=== PATIENT | female | born 1965 | race Caucasian/White ===

== ENCOUNTER → 2018-01-28 07:17 | Outpatient (CLI) | payer OTHER, SELFPAY ==
[2018-01-28 07:53] LABS: Basophils % 0.6 % (0.1-2.0); Eosinophils # 0.1 K/mm3 (0.0-0.4); Eosinophils % 1.1 % (0.1-12.0); Hematocrit 42.9 % (37.0-47.0); Hemoglobin 14.3 g/dL (12.2-16.2); Lymphocytes # 2.2 K/mm3 (0.7-4.5); Mean Corpuscular HGB Conc 33.5 g/dL (31.8-35.4); Mean Corpuscular Hemoglobin 31.9 pg (27.0-31.2); Mean Corpuscular Volume 95.4 fl (81-99); Mean Platelet Volume 7.4 fl (7.4-10.4); Monocytes # 0.3 K/mm3 (0.1-1.0); Monocytes % 6.2 % (1.7-9.3); Neutrophils % 44.1 % (37.0-80.0); Platelet Count 286 K/mm3 (142-424); Red Blood Count 4.49 M/mm3 (4.20-5.40); White Blood Count 4.6 K/mm3 (4.8-10.8)
[2018-01-28 09:32] LABS: Alanine Aminotransferase 22 U/L (12-78); Albumin/Globulin Ratio 1.4 (1.1-1.8); Alkaline Phosphatase 77 U/L (46-116); Aspartate Amino Transferase 15 U/L (15-37); Bilirubin,Total 0.5 mg/dL (0.2-1.0); Blood Urea Nitrogen 16 mg/dL (7-18); Calcium 9.6 mg/dL (8.5-10.1); Carbon Dioxide 33 mmol/L (21.0-32.0); Chloride 104 mmol/L (98-107); Creatinine,Serum 0.51 mg/dL (0.55-1.02); Estimated Glomerular Filt Rate 127 ml/min (>60); Ferritin 153 ng/mL (8-388); GFR (African American) 154 ML/MIN (>60); Globulin 2.9 gm/dl (1.3-3.2); Glucose 72 mg/dL (74-106); Iron 121 ug/dl (28-170); Sodium 143 mmol/L (136-145); Total Protein,Serum 6.9 gm/dL (6.4-8.2)
[2018-01-29 14:49] LABS: Folate >20.0 ng/mL (>3.0); Prealbumin 22 mg/dL (10-36); Vitamin D 25 Hydroxy 65.8 ng/mL (30.0-100.0)
[2018-01-30 19:21] LABS: Methylmalonic Acid 89 nmol/L (0-378)
[2018-02-01 04:22] LABS: Vitamin B1 165.3 nmol/L (66.5-200.0)
== END ==
PROVIDERS: Visit Provider Physician Assistant
DX: R11.0 Nausea (principal); R53.83 Other fatigue; E55.9 Vitamin D deficiency, unspecified; Z13.0 Encounter for screening for diseases of the blood and blood-forming organs and certain disorders involving the immune mechanism; Z13.21 Encounter for screening for nutritional disorder
CPT/HCPCS: 36415; 80053; 82131; 82652; 82728; 82746; 83540; 84134; 84425; 85025

== ENCOUNTER → 2018-03-04 08:28 | Outpatient (CLI) | payer OTHER, SELFPAY ==
--- NOTE | 2018-03-04 08:31 | MM_ITS ---
MM Dig screening mamm BI w/CAD CAD Screening ORDERING PHYSICIAN : Tom Jama MD PATIENT AGE: 52 years GENDER: Female HISTORY. No hormones. No new complaints. Routine screening Family history mother and maternal grandmother with breast cancer COMPARISON: Previous mammograms: January 2017 & December 2015 and 2014. INDICATION: Routine screening TECHNIQUE: Standard CC and MLO images were obtained. R2 CAD reviewed. FINDINGS: Minimal residual fibroglandular elements bilaterally with moderate fatty replacement bilaterally. No dominant mass. No suspicious calcifications. No architectural distortion.. No significant change previous studies CAD computer review highlights no areas of concern IMPRESSION...... : Negative stable bilateral mammogram Follow-up in one year recommended. BI-RADS Category: 1 Negative RECOMMENDED FOLLOW-UP: 1YR - 1 YEAR FOLLOW-UP (A letter has been sent to the patient regarding results of the study.) Knee
== END ==
PROVIDERS: Family Provider Family Medicine; PCP Family Medicine; Visit Provider Nurse Practitioner Obstetrics & Gynecology
DX: Z12.31 Encounter for screening mammogram for malignant neoplasm of breast (principal)
CPT/HCPCS: 77067

== ENCOUNTER → 2018-07-17 08:02 | Outpatient (CLI) | payer OTHER, SELFPAY ==
[2018-07-17 08:38] LABS: Basophils % 0.7 % (0.1-2.0); Eosinophils # 0.2 K/mm3 (0.0-0.4); Eosinophils % 2.8 % (0.1-12.0); Hematocrit 40.8 % (37.0-47.0); Hemoglobin 13.3 g/dL (12.2-16.2); Lymphocytes # 2.4 K/mm3 (0.7-4.5); Lymphocytes % 45.2 K/mm3 (10-50); Mean Corpuscular HGB Conc 32.6 g/dL (31.8-35.4); Mean Corpuscular Hemoglobin 30.7 pg (27.0-31.2); Mean Corpuscular Volume 94.4 fl (81-99); Monocytes # 0.3 K/mm3 (0.1-1.0); Monocytes % 5.8 % (1.7-9.3); Neutrophils # 2.4 K/mm3 (1.8-7.8); Neutrophils % 45.5 % (37.0-80.0); Platelet Count 325 K/mm3 (142-424); Red Blood Count 4.33 M/mm3 (4.20-5.40); Red Cell Distribution Width 12.6 % (11.5-17.5); White Blood Count 5.3 K/mm3 (4.8-10.8)
[2018-07-17 09:55] LABS: Alanine Aminotransferase 26 U/L (12-78); Albumin Level 4.1 gm/dL (3.4-5.0); Albumin/Globulin Ratio 1.2 (1.1-1.8); Alkaline Phosphatase 73 U/L (46-116); Aspartate Amino Transferase 17 U/L (15-37); Bilirubin,Total 0.3 mg/dL (0.2-1.0); Blood Urea Nitrogen 10 mg/dL (7-18); Calcium 9.4 mg/dL (8.5-10.1); Carbon Dioxide 31 mmol/L (21.0-32.0); Chloride 103 mmol/L (98-107); Chol/HDL Ratio 2.9 (1-3.5); Cholesterol 279 mg/dL (140-200); Estimated Glomerular Filt Rate 168 ml/min (>60); GFR (African American) 203 ML/MIN (>60); Globulin 3.3 gm/dl (1.3-3.2); Glucose 83 mg/dL (74-106); HDL Cholesterol 95 mg/dL (29-89); LDL Cholesterol 171 mg/dL (0-130); Sodium 143 mmol/L (136-145); Total Protein,Serum 7.4 gm/dL (6.4-8.2); Triglycerides 65 mg/dL (30-200); VLDL Cholesterol 13 mg/dL (0-40)
== END ==
PROVIDERS: PCP Family Medicine; Visit Provider Nurse Practitioner Obstetrics & Gynecology
DX: Z01.419 Encounter for gynecological examination (general) (routine) without abnormal findings (principal)
CPT/HCPCS: 36415; 80053; 80061; 85025

== ENCOUNTER → 2019-03-11 08:10 | Outpatient (CLI) | payer OTHER, SELFPAY ==
--- NOTE | 2019-03-11 08:11 | MM_ITS ---
MM Dig screening mamm BI w/CAD ORDERING PHYSICIAN : Tom Jama MD PATIENT AGE: 53 years GENDER: Female COMPARISON: Prior bilateral mammogram study: February 2018, January 2017, December 20152014 INDICATION: .: Routine Screening Mammogram Family history mother and maternal grandmother with breast cancer TECHNIQUE: Standard CC and MLO images were obtained. R2 CAD reviewed. FINDINGS: Low-density breast. Minimal residual fibroglandular elements generalized fatty replacement. . No dominant nor new suspicious mass in either breast No new areas of concern. No suspicious calcifications. . IMPRESSION: Stable bilateral mammogram. No areas of concern . Bilateral follow-up in one year BI-RADS Category: 1 Negative RECOMMENDED FOLLOW-UP: 1YR 1 YEAR FOLLOW-UP (A letter has been sent to the patient regarding results of the study.)
== END ==
PROVIDERS: PCP Family Medicine; Visit Provider Nurse Practitioner Obstetrics & Gynecology
DX: Z12.31 Encounter for screening mammogram for malignant neoplasm of breast (principal)
CPT/HCPCS: 77067

== ENCOUNTER → 2019-03-19 07:05 | Outpatient (CLI) | payer OTHER, SELFPAY ==
[2019-03-19 10:03] LABS: Cholesterol 236 mg/dL (140-200); T4 (Thyroxine) 8.8 ug/dl (4.7-13.3); Thyroid Stimulating Hormone 3.34 uIU/ml (0.358-3.740); Triiodothryronine (T3) Uptake 34 % (31-39)
[2019-03-21 21:39] LABS: Estradiol <5.0 pg/mL (.); FSH 46.8 mIU/mL (.)
== END ==
PROVIDERS: Visit Provider Nurse Practitioner Obstetrics & Gynecology
DX: E78.00 Pure hypercholesterolemia, unspecified (principal); N95.1 Menopausal and female climacteric states; R53.82 Chronic fatigue, unspecified
CPT/HCPCS: 36415; 82465; 82670; 83001; 83002; 84436; 84443; 84479

== ENCOUNTER → 2019-04-05 15:39 | Outpatient (POV) | payer OTHER, SELFPAY | PROVIDERS: Visit Provider Nurse Practitioner Family | DX: Z00.00 Encounter for general adult medical examination without abnormal findings (principal) ==

== ENCOUNTER → 2020-04-21 07:53 | Outpatient (CLI) | payer OTHER, SELFPAY ==
--- NOTE | 2020-04-21 07:54 | MM_ITS ---
PROCEDURE: MM DIG SCREENING MAMM BI W/CAD Digital Breast Tomosynthesis Included CLINICAL INDICATION: screening xmg There is a history of breast cancer patient's mother and maternal grandmother. COMPARISON: [facility] DIG MAMM-SCREEN DANNY W/CAD from 02/11/2017 [facility] MM Dig screening mamm BI w/CAD from 03/04/2018 DIG MAMM-SCREEN DANNY from 03/11/2019 TECHNIQUE: Standard CC and MLO images and 3D Tomosynthesis was obtained. R2 CAD reviewed. FINDINGS: Scattered diffuse fibroglandular densities are seen throughout both breasts and the findings are bilateral and symmetrical. There is no suspicious lesion in either breast and no suspicious microcalcifications. IMPRESSION: Moderate diffuse breast density with no suspicious lesions seen BI-RAD Category: 1 Negative FOLLOW-UP: 1YR 1 Year Follow-up (A letter has been sent to the patient regarding results of the study.) Dictated by: Dr. Melchor Gauthier MD 04/24/2020 08:[address] Melchor Gauthier MD in [place] 04/24/2020 08:25
== END ==
PROVIDERS: PCP Family Medicine; Visit Provider Nurse Practitioner Obstetrics & Gynecology
DX: Z12.31 Encounter for screening mammogram for malignant neoplasm of breast (principal)
CPT/HCPCS: 77063; 77067

== ENCOUNTER → 2020-06-20 11:28 | Outpatient (CLI) | payer OTHER, SELFPAY ==
[2020-06-20 13:09] LABS: Basophils % 0.6 % (0.1-2.0); Eosinophils # 0.1 K/mm3 (0.0-0.4); Eosinophils % 1.2 % (0.1-12.0); Hematocrit 40.7 % (37.0-47.0); Hemoglobin 13.8 g/dL (12.2-16.2); Lymphocytes # 2.2 K/mm3 (0.7-4.5); Lymphocytes % 43.2 % (10-50); Mean Corpuscular HGB Conc 33.8 g/dL (31.8-35.4); Mean Corpuscular Hemoglobin 32.5 pg (27.0-31.2); Mean Platelet Volume 7.8 fl (7.4-10.4); Monocytes # 0.3 K/mm3 (0.1-1.0); Neutrophils # 2.5 K/mm3 (1.8-7.8); Platelet Count 290 K/mm3 (142-424); Red Blood Count 4.24 M/mm3 (4.20-5.40); Red Cell Distribution Width 12.5 % (11.5-17.5); White Blood Count 5.2 K/mm3 (4.8-10.8)
[2020-06-21 16:12] LABS: Covid-19 Nasal PCR Sendout Lex Not Detected
== END ==
PROVIDERS: PCP Family Medicine; Visit Provider Family Medicine
DX: Z03.818 Encounter for observation for suspected exposure to other biological agents ruled out (principal)
CPT/HCPCS: 36415; 85025; U0004

== ENCOUNTER → 2020-07-13 16:25 | Outpatient (CLI) | payer OTHER, SELFPAY ==
[2020-07-13 16:44] LABS: Adenovirus,PCR Not Detected (NotDetected); Bordetella Pertussis Not Detected (NotDetected); Chlamydophila Pneumoniae, PCR Not Detected (NotDetected); Coronavirus 19, PCR Not Detected (NotDetected); Coronavirus 229E Not Detected (NotDetected); Coronavirus NL63 Not Detected (NotDetected); Coronavirus OC43 Not Detected (NotDetected); Coronovirus HKU1,PCR Not Detected (NotDetected); Human Metapneumovirus Not Detected (NotDetected); Influenza A, PCR Not Detected (NotDetected); Influenza AH1, 2009 Not Detected (NotDetected); Influenza AH1, PCR Not Detected (NotDetected); Influenza AH3,PCR Not Detected (NotDetected); Influenza B, PCR Not Detected (NotDetected); Mycoplasma Pneumoniae, PCR Not Detected (NotDetected); Parainfluenza 1, PCR Not Detected (NotDetected); Parainfluenza 2, PCR Not Detected (NotDetected); Parainfluenza 3, PCR Not Detected (NotDetected); Parainfluenza 4, PCR Not Detected (NotDetected); Respiratory Syncytial Virus Not Detected (NotDetected); Rhinovirus/Enterovirus Not Detected (NotDetected)
== END ==
PROVIDERS: PCP Family Medicine; Visit Provider Internal Medicine Adolescent Medicine
DX: Z03.818 Encounter for observation for suspected exposure to other biological agents ruled out (principal)
CPT/HCPCS: 87581; 87633; 87798; U0003

== ENCOUNTER 2020-11-01 16:31 | Emergency (ER) | payer OTHER, SELFPAY ==
[2020-11-01 16:58] VITALS: BP 144/80; PULSE 69; RESP 19; TEMP 36.9; O2SAT 100; BMI 33.7
--- NOTE | 2020-11-01 17:17 | HMH.EDUTC ---
[facility] [place] Disposition Clinical Impression: Strep throat Disposition: Home, Self-Care Condition on Discharge: Good Instructions: Strep Throat, DI for Strep Throat Additional Instructions: Drink plenty of fluids. Take tylenol for pain or fever. Return if you begin to have difficulty breathing. Follow up with your regular doctor. GO TO THE ER FOR ANY WORSENING SYMPTOMS Throw your tooth brush away and get a new one. Prescriptions: Azithromycin [Z-Jose Alejandro 250mg Tab*] 250 mg PO UD DOSE PK #6 tab Transmission Status: Received by [facility] Referrals: Daniel Polk MD [Primary Care Provider] - Forms: Work/School Release Time of Disposition: 17:19 Medical Decision Making - Medical Records Medical records reviewed: No: I reviewed the patient's medical records. - Victor Hugo Inquiry Pt receiving controlled substance: No Vital Signs: 11/01/20 16:58 11/01/20 17:20 Temperature 98.4 F 98.0 F Temperature Source Oral Oral Pulse Rate 69 Pulse Rate [Right] 69 Respiratory Rate 19 18 Blood Pressure 131/86 Blood Pressure [Right Radial Artery] 144/80 H Blood Pressure Mean [Right Radial Artery] 101 Blood Pressure Source [Right Radial Artery] Automatic Cuff Blood Pressure Position Sitting Blood Pressure Position [Right Radial Artery] Sitting 02 Sat by Pulse Oximetry 100 Oxygen Delivery Method Room Air - Lab Data Lab results reviewed: Yes: I reviewed the patient's lab results. Lab Results 11/01/20 16:55: Strep Scn Rapid Clinic Positive A [facility] [place] HPI - General Stated complaint: Covid test Time Seen by Provider: 11/01/20 17:17 Mode of Arrival: Ambulatory Source of Information: Patient Limitations: No Limitations Description of Symptoms (Recalled from Triage Doc. by RN): pt states she has a sore throat, shes fatigued, has a sore chest. and is inquiring about receiving a covid test. HEENT Symptoms (Recalled from RN notes): Yes (sore throat) Resp Symptoms (Recalled from RN notes): No Skin Symptoms (Recalled from RN notes): No MS Symptoms (Recalled from RN notes): No Functional Status (Recalled from RN notes): generalized weakness - History of Present Illness Provider Complaint: She states that since yesterday she has felt very fatigued. She has also chilled and had a sore throat. 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 She denies any cough, shortness of breath, fever, and body aches. - Related Data Home Medications Medication Instructions Recorded Confirmed omeprazole 40 mg capsule,delayed 40 mg PO DAILY #30 cap 05/06/19 08/15/20 release Previous Rx's Medication Instructions Recorded estradiol 1 g VAGINAL WEEKLY #42.5 g 10/25/20 Azithromycin [Z-Jose Alejandro 250mg Tab*] 250 mg PO UD DOSE PK #6 tab 11/01/20 Allergies Allergy/AdvReac Type Severity Reaction Status Date / Time cephalexin Allergy Severe SWELLS AND Verified 11/01/20 17:04 DIFFICULTY BREATHING Penicillins Allergy Severe SWELLS AND Verified 11/01/20 17:04 DIFFICULTY BREATHING bupropion Allergy Intermediate I-HIVES Verified 11/01/20 17:04 codeine Allergy Unknown HEART RACES Verified 11/01/20 17:04 - Worker's Comp Is this a Worker's Comp case?: No [facility] History - Hepatitis A Screen Drug use history?: No High risk sexual behaviors?: No History of sexually transmitted infection?: No Currently employed?: No Childcare worker?: No Do you have indoor plumbing?: Yes Do you have electricity?: Yes Attestation statement:: This patient has been screened for Hepatitis A risk factors. I have reviewed the patient's past medical history: Yes Medical History: Denies:: Diabetes Mellitus Type 1, Diabetes Mellitus Type 2, Internal Pacemaker, Lung Disease, Seizures Other Medical History: Reports: Thyroid Disease Laterality Cases: Bilateral: Other Other Surgeries: Yes: Bariatric Surgery, , Dilation and Curettage, Tubal Ligation. No: Pacemaker Amputation: No Fractu
[2020-11-01 17:20] VITALS: BP 131/86; PULSE 69; RESP 18; TEMP 36.7
[2020-11-01 17:22] LABS: UTC Strep Screen (Rapid) Positive (Negative)
== END 2020-11-01 17:20 | disposition home or self-care (01) ==
PROVIDERS: Emergency Provider Nurse Practitioner Family; PCP Family Medicine
DX: J02.0 Streptococcal pharyngitis (principal)
CPT/HCPCS: 87880; 99202; G0463; U0003

== ENCOUNTER → 2021-05-02 07:54 | Outpatient (CLI) | payer OTHER, SELFPAY ==
--- NOTE | 2021-05-02 07:54 | MM_ITS ---
PROCEDURE INFORMATION: Exam: MG Screening 3D Mammography Exam date and time: 05/02/2021 7:54 AM Age: 55 years old Clinical indication: Encounter for screening mammogram for malignant neoplasm of breast TECHNIQUE: Imaging protocol: Screening tomosynthesis and 2D mammography including computer-aided detection (CAD) when performed. COMPARISON: 1. MG MM DIG SCREENING MAMM BI W/CAD 04/21/2020 8:06 AM 2. MG DIG MAMM-SCREEN DANNY 03/11/2019 8:30 AM FINDINGS: MAMMOGRAPHY: Breast composition: The breast tissue is composed of scattered areas of fibroglandular density. Mass: None. Architectural distortion: None. Calcifications: No suspicious calcifications. Asymmetric density: None. Skin thickening: None. Axillary adenopathy: None. IMPRESSION: No mammographic evidence of malignancy. Annual screening is recommended unless otherwise clinically indicated. ASSESSMENT: BI-RADS Category 1: Negative
== END ==
PROVIDERS: PCP Family Medicine; Visit Provider Nurse Practitioner Obstetrics & Gynecology
DX: Z12.31 Encounter for screening mammogram for malignant neoplasm of breast (principal)
CPT/HCPCS: 77063; 77067

== ENCOUNTER → 2021-07-05 19:43 | Outpatient (CLI) | payer OTHER, SELFPAY | PROVIDERS: Visit Provider Nurse Practitioner Family | DX: Z20.822 Contact with and (suspected) exposure to COVID-19 (principal) | CPT/HCPCS: C9803; U0003; U0005 ==

== ENCOUNTER → 2021-11-13 15:55 | Outpatient (CLI) | payer BC, SELFPAY | PROVIDERS: PCP Family Medicine; Visit Provider Nurse Practitioner | DX: Z20.822 Contact with and (suspected) exposure to COVID-19 (principal) | CPT/HCPCS: C9803; U0003; U0005 ==

== ENCOUNTER 2022-02-17 11:18 | Emergency (ER) | payer OTHER, SELFPAY ==
[2022-02-17 11:36] VITALS: BP 137/71; PULSE 82; RESP 19; TEMP 36.8; O2SAT 95; BMI 34.9
--- NOTE | 2022-02-17 11:39 | HMH.EDUTC ---
[facility] [place] Disposition Clinical Impression: Sinusitis Qualifiers: Sinusitis location: unspecified location Chronicity: acute Recurrence: non-recurrent Qualified Code(s): J01.90 - Acute sinusitis, unspecified Acute bronchitis Qualifiers: Bronchitis organism: unspecified organism Qualified Code(s): J20.9 - Acute bronchitis, unspecified Disposition: Home, Self-Care Condition on Discharge: Good Instructions: DI for Sinusitis, DI for Acute Bronchitis Additional Instructions: Drink plenty of fluids. Take tylenol or ibuprofen for pain or fever. Take the medications as directed. Follow up with your regular doctor. GO TO THE ER FOR ANY WORSENING SYMPTOMS Don't start the oral steroids until tomorrow, since you had the shot here today. Prescriptions: Benzonatate [Benzonatate 100mg cap] 100 mg PO TIDP PRN #30 cap PRN Reason: Cough Transmission Status: Received by [facility] Doxycycline Monohydrate [Doxycycline [place] 100mg Tab] 100 mg PO Q12 10 Days #20 tab Transmission Status: Received by [facility] methylPREDNISolone [Medrol] 4 mg PO DIRECTED 6 Days #21 packet Transmission Status: Received by [facility] Referrals: Daniel Polk MD [Primary Care Provider] - Forms: Work/School Release Time of Disposition: 12:34 Medical Decision Making - Medical Records Medical records reviewed: No: I reviewed the patient's medical records. - Victor Hugo Inquiry Pt receiving controlled substance: No Vital Signs: 02/17/22 11:36 02/17/22 12:38 Temperature 98.3 F 98.3 F Temperature Source Oral Pulse Rate 82 Pulse Rate [Left Radial] 82 Respiratory Rate 19 19 Blood Pressure 137/71 Blood Pressure [Right Arm] 137/71 Blood Pressure Mean [Right Arm] 93 02 Sat by Pulse Oximetry 95 - Lab Data Lab results reviewed: Yes: I reviewed the patient's lab results. Orders (Tests/Meds): ED MEDICATIONS Discontinued Medications Generic Name Dose Route Start Last Admin Trade Name Freq PRN Reason Stop Dose Admin Dexamethasone Sodium Phosphate 8 mg 02/17/22 12:13 02/17/22 12:27 Dexamethasone 4mg/Ml 1ml Vial IM 02/17/22 12:14 8 mg ON[address] [facility] [place] HPI - General Stated complaint: cough, chest congestion Time Seen by Provider: 02/17/22 11:39 - History of Present Illness Provider Complaint: She states that for the past 3 weeks she has had sinus congestion, chest congestion, cough, and she has felt bad. She denies any fever. She usually gets a sinus infection every spring that feels like this, but this one has went on too long. - Related Data Home Medications Medication Instructions Recorded Confirmed omeprazole 40 mg capsule,delayed 40 mg PO DAILY #30 cap 05/06/19 11/29/21 release Previous Rx's Medication Instructions Recorded estradiol 1 g VAGINAL WEEKLY #42.5 g 10/25/20 Benzonatate [Benzonatate 100mg 100 mg PO TIDP PRN #30 cap 02/17/22 cap] Doxycycline Monohydrate 100 mg PO Q12 10 Days #20 tab 02/17/22 [Doxycycline [place] 100mg Tab] methylPREDNISolone [Medrol] 4 mg PO DIRECTED 6 Days #21 02/17/22 packet Allergies Allergy/AdvReac Type Severity Reaction Status Date / Time cephalexin Allergy Severe SWELLS AND Verified 08/14/21 17:39 DIFFICULTY BREATHING Penicillins Allergy Severe SWELLS AND Verified 08/14/21 17:39 DIFFICULTY BREATHING bupropion Allergy Intermediate I-HIVES Verified 08/14/21 17:39 codeine Allergy Unknown HEART RACES Verified 08/14/21 17:39 [facility] History - Hepatitis A Screen Attestation statement:: This patient has been screened for Hepatitis A risk factors. I have reviewed the patient's past medical history: Yes Medical History: Denies:: Diabetes Mellitus Type 1, Diabetes Mellitus Type 2, Internal Pacemaker, Lung Disease, Seizures Other Medical History: Reports: Thyroid Disease Laterality Cases: Bilateral: Other Other Surgeries: Yes: Bariatric Surg
[2022-02-17 12:38] VITALS: BP 137/71; PULSE 82; RESP 19; TEMP 36.8
== END 2022-02-17 12:39 | disposition home or self-care (01) ==
PROVIDERS: Emergency Provider Nurse Practitioner Family; PCP Family Medicine
DX: J01.90 Acute sinusitis, unspecified (principal); J20.9 Acute bronchitis, unspecified; Z88.0 Allergy status to penicillin; Z88.1 Allergy status to other antibiotic agents; Z88.6 Allergy status to analgesic agent; Z88.8 Allergy status to other drugs, medicaments and biological substances
CPT/HCPCS: 96372; 99212; G0463

== ENCOUNTER 2022-02-19 07:37 | Emergency (ER) | payer OTHER, SELFPAY ==
[2022-02-19 07:38] VITALS: BP 167/104; PULSE 76; RESP 18; TEMP 36.9; O2SAT 95; BMI 34.3
[2022-02-19 07:51] VITALS: BMI 34.3
--- NOTE | 2022-02-19 07:52 | XR_ITS ---
FINAL REPORT CLINICAL HISTORY: cough, SOA COMPARISON: June 18, 2016 FINDINGS: A portable view of the chest was obtained. Comparison is made to a prior exam dated June 18, 2016. Cardiac and mediastinal silhouettes are within normal limits. The lungs are clear. There is no pleural effusion or pneumothorax. IMPRESSION: No acute process on this portable exam. Reviewed, Interpreted and Dictated by Sandra Mccoy MD Transcribed by Kristal Damon Authenticated by Sandra Mccoy MD on 02/19/2022 08:41:[address] [facility]
--- NOTE | 2022-02-19 07:58 | PC.NURSE ---
rad notified of xray order
--- NOTE | 2022-02-19 07:58 | HMH.EDGENADL ---
ED Disposition Clinical Impression: COVID-19, Elevated blood pressure reading Disposition: Home, Self-Care Condition on Discharge: Good Instructions: DI for COVID-19 (Suspected or Confirmed ), Preventing the Spread of Coronavirus Discharge Instructions, High Blood Pressure Linked to Inflammation, Essential Hypertension Additional Instructions: self isolate at least 5 days from onset, 10 days if not better follow up PCP 7-10 days, as needed, return for worse Prescriptions: Albuterol Sulfate [Albuterol Sulfate Hfa] 8.5 gm IH Q4-6H PRN #1 each PRN Reason: Wheezing Transmission Status: Received by [id number] Referrals: Daniel Polk MD [Primary Care Provider] - - Critical Care Critical Care Time: No Attestation: On 02/19/22, the high probability of a clinically significant, sudden or life threatening deterioration of the following system(s) required my full and direct attention, intervention and personal management. The time I documented below is in addition to time spent performing reported procedures but includes the following listed in this critical care notation. Medical Decision Making - Medical Records Medical records reviewed: Yes: I reviewed the patient's medical records. - Victor Hugo Inquiry Pt receiving controlled substance: No Vital Signs: 02/19/22 07:38 Temperature 98.5 F Temperature Source Oral Pulse Rate [Right Radial] 76 Respiratory Rate 18 Blood Pressure [Right Arm] 167/104 H Blood Pressure Mean [Right Arm] 125 Blood Pressure Source [Right Arm] Automatic Cuff Blood Pressure Position [Right Arm] Sitting 02 Sat by Pulse Oximetry 95 Oxygen Delivery Method Room Air - Lab Data Lab Results 02/19/22 07:50: SARS-CoV-2 (PCR) Detected A, Influenza A Untype (PCR) Not detected, Influenza Type B (PCR) Not detected Orders (Tests/Meds): ORDERS Category Date Time Status XR chest portable Stat Exams 02/19/22 07:52 Taken - ECG Data Tracing #1 I reviewed this ECG and interpreted as documented below: ekg by me nsr, poss lae, no st elev General Adult HPI - General Stated complaint: SOA, congestion, cough, vomiting blood Time Seen by Provider: 02/19/22 07:58 - History of Present Illness HPI narrative: few days, prod cough, reflux, vomit with blood tinged, fever, pos covid test at home Onset (ago): day(s) Radiation: non-radiation Severity: moderate Quality: constant Consistency: constant Associated symptoms: cough, fever/chills, nausea/vomiting, shortness of breath - Related Data Home Medications Medication Instructions Recorded Confirmed omeprazole 40 mg capsule,delayed 40 mg PO DAILY #30 cap 05/06/19 11/29/21 release Previous Rx's Medication Instructions Recorded estradiol 1 g VAGINAL WEEKLY #42.5 g 10/25/20 Benzonatate [Benzonatate 100mg 100 mg PO TIDP PRN #30 cap 02/17/22 cap] Doxycycline Monohydrate 100 mg PO Q12 10 Days #20 tab 02/17/22 [Doxycycline [place] 100mg Tab] methylPREDNISolone [Medrol] 4 mg PO DIRECTED 6 Days #21 02/17/22 packet Albuterol Sulfate [Albuterol 8.5 gm IH Q4-6H PRN #1 each 02/19/22 Sulfate Hfa] Allergies Allergy/AdvReac Type Severity Reaction Status Date / Time cephalexin Allergy Severe SWELLS AND Verified 08/14/21 17:39 DIFFICULTY BREATHING Penicillins Allergy Severe SWELLS AND Verified 08/14/21 17:39 DIFFICULTY BREATHING bupropion Allergy Intermediate I-HIVES Verified 08/14/21 17:39 codeine Allergy Unknown HEART RACES Verified 08/14/21 17:39 [facility] History - Hepatitis A Screen Attestation statement:: This patient has been screened for Hepatitis A risk factors. Medical History: Denies:: Diabetes Mellitus Type 1, Diabetes Mellitus Type 2, Internal Pacemaker, Lung Disease, Seizures Other Medical History: Reports: Thyroid Disease Laterality Cases: Bilateral: Other Other Surgeries: Yes: Bariatric Surgery, , Dilation and Curettage, Tubal Ligation. No:
--- NOTE | 2022-02-19 07:59 | ECG_ITS ---
APPROVED REPORT Exam: Resting ECG HR:66 bpm ECG Measurements Heart Rate 66 AXES MS 132 P 63 QRSd 96 QRS 60 QT 358 T 75 QTc 372 Conclusion SINUS RHYTHM POSSIBLE LEFT ATRIAL ENLARGEMENT [-0.1mV P-WAVE IN V1/V2] NONSPECIFIC ST & T-WAVE ABNORMALITY BORDERLINE ECG UNCONFIRMED REPORT Electronically signed by : Carlos Colunga MD 02/19/2022 21:19:59
[2022-02-19 08:03] LABS: Influenza A, PCR Not Detected (NotDetected); Influenza B, PCR Not Detected (NotDetected)
--- NOTE | 2022-02-19 08:03 | PC.NURSE ---
MINNIE HUERTAS at
--- NOTE | 2022-02-19 08:12 | PC.NURSE ---
rad at BS
[2022-02-19 08:46] LABS: Coronavirus 19, PCR Detected (NotDetected)
[2022-02-19 09:01] VITALS: BP 162/99; PULSE 62; RESP 18; TEMP 36.9; O2SAT 97
== END 2022-02-19 09:01 | disposition home or self-care (01) ==
PROVIDERS: Emergency Medicine; Emergency Provider Emergency Medicine; PCP Family Medicine
DX: U07.1 COVID-19 (principal); R03.0 Elevated blood-pressure reading, without diagnosis of hypertension; R06.02 Shortness of breath; R05.9 Cough, unspecified; R09.89 Other specified symptoms and signs involving the circulatory and respiratory systems; K92.0 Hematemesis; Z88.0 Allergy status to penicillin; Z88.1 Allergy status to other antibiotic agents; Z88.6 Allergy status to analgesic agent; Z88.8 Allergy status to other drugs, medicaments and biological substances
CPT/HCPCS: 71045; 93005; 99283; C9803; U0003; U0005

== ENCOUNTER 2022-05-06 13:53 | Emergency (ER) | payer BC, SELFPAY ==
[2022-05-06 14:26] VITALS: BP 142/88; PULSE 78; RESP 18; TEMP 36.8; O2SAT 98; BMI 34.3
--- NOTE | 2022-05-06 14:26 | HMH.EDUTC ---
[facility] [place] Clinical Impression: Bronchitis Sinusitis Qualifiers: Sinusitis location: unspecified location Chronicity: acute Recurrence: non-recurrent Qualified Code(s): J01.90 - Acute sinusitis, unspecified Disposition: Home, Self-Care Condition on Discharge: Good Instructions: DI for Sinusitis Additional Instructions: Drink plenty of fluids. Take tylenol or ibuprofen for pain or fever. Take the medications as directed. Follow up with your regular doctor. GO TO THE ER FOR ANY WORSENING SYMPTOMS Quarantine until you know the results of your covid-19 test. Notify your school or workplace of your results and follow their instructions regarding return to work/school. Prescriptions: Benzonatate [Benzonatate 100mg cap] 100 mg PO TIDP PRN #30 cap PRN Reason: Cough Transmission Status: Received by [facility] Doxycycline Monohydrate [Doxycycline [place] 100mg Tab] 100 mg PO Q12 10 Days #20 tab Transmission Status: Received by [facility] methylPREDNISolone [Medrol] 4 mg PO DIRECTED 6 Days #21 packet Transmission Status: Received by [facility] Referrals: Daniel Polk MD [Primary Care Provider] - Forms: Work/School Release Time of Disposition: 15:18 Medical Decision Making - Medical Records Medical records reviewed: No: I reviewed the patient's medical records. - Victor Hugo Inquiry Pt receiving controlled substance: No Vital Signs: 05/06/22 14:26 05/06/22 15:36 Temperature 98.2 F 98.2 F Temperature Source Oral Pulse Rate 78 Pulse Rate [Right Radial] 78 Respiratory Rate 18 18 Blood Pressure 142/88 H Blood Pressure [Right Arm] 142/88 H Blood Pressure Mean [Right Arm] 106 Blood Pressure Source [Right Arm] Automatic Cuff Blood Pressure Position [Right Arm] Sitting 02 Sat by Pulse Oximetry 98 Oxygen Delivery Method Room Air [facility] [place] HPI - General Stated complaint: cough, congestion, sinus pressure Time Seen by Provider: 05/06/22 14:26 - History of Present Illness Provider Complaint: She states that for the past 2 days she has had sinus congestion, sore throat and a cough. - Related Data Home Medications Medication Instructions Recorded Confirmed omeprazole 40 mg capsule,delayed 40 mg PO DAILY #30 cap 05/06/19 05/06/22 release Previous Rx's Medication Instructions Recorded Benzonatate [Benzonatate 100mg 100 mg PO TIDP PRN #30 cap 05/06/22 cap] Doxycycline Monohydrate 100 mg PO Q12 10 Days #20 tab 05/06/22 [Doxycycline [place] 100mg Tab] methylPREDNISolone [Medrol] 4 mg PO DIRECTED 6 Days #21 05/06/22 packet Allergies Allergy/AdvReac Type Severity Reaction Status Date / Time cephalexin Allergy Severe SWELLS AND Verified 08/14/21 17:39 DIFFICULTY BREATHING Penicillins Allergy Severe SWELLS AND Verified 08/14/21 17:39 DIFFICULTY BREATHING bupropion Allergy Intermediate I-HIVES Verified 08/14/21 17:39 codeine Allergy Unknown HEART RACES Verified 08/14/21 17:39 [facility] History - Hepatitis A Screen Attestation statement:: This patient has been screened for Hepatitis A risk factors. I have reviewed the patient's past medical history: Yes Medical History: Denies:: Diabetes Mellitus Type 1, Diabetes Mellitus Type 2, Internal Pacemaker, Lung Disease, Seizures Other Medical History: Reports: Thyroid Disease Laterality Cases: Bilateral: Other Other Surgeries: Yes: Bariatric Surgery, , Dilation and Curettage, Tubal Ligation. No: Pacemaker Amputation: No Fractures: No Comment: lasik 2001, Ablation 2003 - Social History Smoking Status: Never smoker Alcohol Intake: never Substance Use Type: denies use Occupational Status: retired Housing: house Household Members: family Family Hx:: No significant family history [employer] history: Tubal Ligation ROS Obtained: Yes All systems reviewed & no additional complaints - Constitutional Constitutional: Reports as p
[2022-05-06 15:36] VITALS: BP 142/88; PULSE 78; RESP 18; TEMP 36.8
== END 2022-05-06 15:37 | disposition home or self-care (01) ==
PROVIDERS: Emergency Provider Nurse Practitioner Family; PCP Family Medicine
DX: J01.90 Acute sinusitis, unspecified (principal); J02.9 Acute pharyngitis, unspecified; E07.9 Disorder of thyroid, unspecified; Z88.0 Allergy status to penicillin; Z88.5 Allergy status to narcotic agent; Z88.8 Allergy status to other drugs, medicaments and biological substances
CPT/HCPCS: 99213; G0463

== ENCOUNTER → 2022-05-16 08:18 | Outpatient (CLI) | payer BC, SELFPAY ==
--- NOTE | 2022-05-16 08:19 | MM_ITS ---
PROCEDURE INFORMATION: Exam: MG Bilateral Screening 3D Mammography Exam date and time: 05/16/2022 8:37 AM Age: 57 years old Clinical indication: Screening mammogram TECHNIQUE: Imaging protocol: Bilateral Screening tomosynthesis and 2D mammography including computer-aided detection (CAD) when performed. COMPARISON: 1. MG MM DIG SCREENING MAMM BI W/CAD 05/02/2021 8:01 AM 2. MG MM DIG SCREENING MAMM BI W/CAD 04/21/2020 8:06 AM 3. MG DIG MAMM-SCREEN DANNY 03/11/2019 8:30 AM 4. MG [facility] MM Dig screening mamm BI w/CAD 03/04/2018 8:42 AM FINDINGS: MAMMOGRAPHY: Breast composition: There are scattered areas of fibroglandular density. Mass: None. Architectural distortion: No new or suspicious architectural distortion. Calcifications: No new or suspicious calcifications are present Asymmetric density: No new or suspicious asymmetric density is present Skin thickening: None. Axillary adenopathy: None. IMPRESSION: No mammographic evidence of malignancy. Recommend annual screening mammography unless otherwise clinically indicated. ASSESSMENT: BI-RADS category 1: Negative
== END ==
PROVIDERS: PCP Family Medicine; Visit Provider Nurse Practitioner Obstetrics & Gynecology
DX: Z12.31 Encounter for screening mammogram for malignant neoplasm of breast (principal)
CPT/HCPCS: 77063; 77067

== ENCOUNTER 2022-08-04 13:39 | Emergency (ER) | payer BC, SELFPAY ==
--- NOTE | 2022-08-04 15:27 | EXP.UTC ---
Discharge Plan Disposition Patient Disposition: Home, Self-Care Condition: Good Prescriptions Prescriptions: New promethazine-DM 6.25-15 mg/5 mL Syrup 5 ml PO Q6H PRN (Reason: Cough) Qty: 240 0RF doxycycline monohydrate [doxycycline monohydrate] 100 mg tablet 100 mg PO Q12 10 Days Qty: 20 0RF methylprednisolone 4 mg Tablets,Dose Pack 4 mg PO DIRECTED Qty: 21 0RF No Action omeprazole 40 mg capsule,delayed release(DR/EC) 40 mg PO DAILY Qty: 30 Label Comments: TAKE 1 CAPSULE BY MOUTH EVERY DAY doxycycline monohydrate 100 MG tablet 100 mg PO Q12 10 Days Qty: 20 0RF benzonatate 100 MG capsule 100 mg PO TIDP PRN (Reason: Cough) Qty: 30 0RF methylprednisolone 4 MG tablets,dose pack 4 mg PO DIRECTED 6 Days Qty: 21 0RF Referrals Follow up/Referrals: Daniel Polk MD [Primary Care Provider] - See instructions Activity Restrictions/Add. Instructions Additional Instructions/Restrictions: Drink plenty of fluids. Take tylenol or ibuprofen for pain or fever. Take the medications as directed. Follow up with your regular doctor. GO TO THE ER FOR ANY WORSENING SYMPTOMS Don't start the oral steroids until tomorrow, since you had the shot here today. The cough medication (promethazine dm) will make you drowsy, so don't drive or operate heavy machinery after taking it. Clinical Impressions Clinical Impression: Sinusitis Stand Alone Forms Stand Alone Forms: Work/School Release Instructions Patient Instructions: Sinusitis, DI for Sinusitis, Dexamethasone Injection Discharge ED Provider: Chad Oshea [facility] [place] HPI General Stated complaint: Congestion Time Seen by Provider: 08/04/22 15:27 History of Present Illness Provider Complaint: She states that for the past 2 days she has had worsening sinus congestion. She gets sinus infections at this time of the year. She refuses any strep or viral testing. Related Data Home Medications Medication Instructions Recorded Confirmed omeprazole 40 mg capsule,delayed 40 mg PO DAILY stomach #30 caps 05/06/19 05/06/22 release Previous Rx's Medication Instructions Recorded benzonatate 100 mg capsule 100 mg PO TIDP PRN Cough #30 caps 05/06/22 doxycycline monohydrate 100 mg 100 mg PO Q12 10 days #20 tabs 05/06/22 tablet methylprednisolone 4 mg tablets in 4 mg PO DIRECTED 6 days #21 05/06/22 a dose pack packets doxycycline monohydrate 100 mg 100 mg PO Q12 10 days #20 tabs 08/04/22 tablet methylprednisolone 4 mg tablets in 4 mg PO DIRECTED #21 tabs 08/04/22 a dose pack promethazine-DM 6.25 mg-15 mg/5 mL 5 ml PO Q6H PRN Cough #240 mL 08/04/22 oral syrup Allergies Allergy/AdvReac Type Severity Reaction Status Date / Time cephalexin Allergy Severe SWELLS AND Verified 08/04/22 15:36 DIFFICULTY BREATHING Penicillins Allergy Severe SWELLS AND Verified 08/04/22 15:36 DIFFICULTY BREATHING bupropion Allergy Intermediate I-HIVES Verified 08/04/22 15:36 codeine Allergy Unknown HEART RACES Verified 08/04/22 15:36 [facility] Social History Smoking Status: Never smoker alcohol intake: never substance use type: denies use current occupational status: retired Travel in the last 8 weeks: None household members: family housing: house caffeine: No ROS Obtained: Yes All systems reviewed & no additional complaints except as documented Constitutional Constitutional: Denies chills and Denies fever(s) Eyes Eyes: Denies eye discharge ENT Ears, Nose, Mouth, and Throat: Reports as per HPI Cardiovascular Cardiovascular: Denies chest pain Respiratory Respiratory: Denies chest congestion and Reports cough Gastrointestinal Gastrointestingal: Reports nausea; Denies abdominal pain, constipation, cramping, diarrhea or vomiting Musculoskeletal Musculoskeletal: Denies arthralgias Integumentary/Breasts Skin/Breast:
[2022-08-04 15:34] VITALS: BP 138/88; PULSE 73; RESP 18; TEMP 36.8; O2SAT 96; BMI 34.3
[2022-08-04 16:02] VITALS: BP 138/88; PULSE 73; RESP 18; TEMP 36.8
== END 2022-08-04 16:02 | disposition home or self-care (01) ==
PROVIDERS: Emergency Provider Nurse Practitioner Family; PCP Family Medicine
DX: R05.9 Cough, unspecified (principal); R09.81 Nasal congestion; Z79.52 Long term (current) use of systemic steroids; Z79.899 Other long term (current) drug therapy; Z88.0 Allergy status to penicillin; Z88.5 Allergy status to narcotic agent; Z88.8 Allergy status to other drugs, medicaments and biological substances
CPT/HCPCS: 96372; 99213; G0463

== ENCOUNTER → 2022-08-13 15:22 | Outpatient (CLI) | payer BC, SELFPAY | PROVIDERS: PCP Family Medicine; Visit Provider Family Medicine | DX: R53.82 Chronic fatigue, unspecified (principal); G47.33 Obstructive sleep apnea (adult) (pediatric) | CPT/HCPCS: G0399 ==

== ENCOUNTER 2023-11-02 12:59 | Emergency (ER) | payer BC, SELFPAY ==
[2023-11-02 14:10] VITALS: BP 149/86; PULSE 90; RESP 18; TEMP 37; O2SAT 100; BMI 32.8
[2023-11-02 14:24] LABS: UTC Influenza A Antigen Positive (Negative); UTC Influenza B Antigen Negative (Negative)
--- NOTE | 2023-11-02 14:39 | ED_ITS ---
Discharge Plan Disposition Patient Disposition: Home, Self-Care Condition: Good Prescriptions Prescriptions: New oseltamivir [Tamiflu] 75 mg capsule 75 mg PO Q12H 5 Days Qty: 10 0RF guaifenesin [Mucinex] 600 mg tablet extended release 12hr 1,200 mg PO BID PRN (Reason: cough) Qty: 20 0RF No Action multivitamin Tablet 1 tab PO DAILY omega 8-jld-yyd-fish oil [Fish Oil] 300-1,000 mg capsule 1 cap PO DAILY trazodone 50 mg tablet 50 mg PO HS PRN doxycycline hyclate 100 mg capsule 100 mg PO BID 7 Days Qty: 14 0RF fluticasone propionate [Flonase Allergy Relief] 50 mcg/actuation spray,suspension 2 spray intranasal DAILY Qty: 16 3RF Rx Instructions: administer into each nostril levocetirizine [Xyzal] 5 mg tablet 5 mg PO DAILY Qty: 90 3RF omeprazole 20 mg capsule,delayed release(DR/EC) 20 mg PO DAILY Patient Comments: TAKE ONE CAPSULE BY MOUTH EVERY DAY estradiol 0.01 % (0.1 mg/gram) cream 1 g vaginal WEEKLY Qty: 42.5 3RF Referrals Follow up/Referrals: Daniel Polk MD [Primary Care Provider] - See instructions Activity Restrictions/Add. Instructions Additional Instructions/Restrictions: * Start Tamiflu today if you are going to take it. Discussed risk and possible benefits. * Lots of rest * Increase Fluids water, Gatorade, powerade, pedialyte,if infant/toddler/child * Alternate Tylenol and / or ibuprofen as discussed for fever, aches, chills Follow up IMMEDIATELY with your family doctor for new or worsening Symptoms OR no noticeable improvement over the next 48-72 hours, 911 for difficulty or breathing * You or your child area contagious until no fever, aches, chills for 24 hours with medication for symptoms * Help Prevent the spread of influenza: * ?Wash your hands often. Use soap and water. Wash your hands after you use the bathroom, change a child's diapers, or sneeze. Wash your hands before you prepare or eat food. Use gel hand cleanser that has 60% alcohol, when soap and water are not available. Do not touch your eyes, nose, or mouth unless you have washed your hands first. * Cover your mouth when you sneeze or cough. Cough into a tissue or the bend of your arm. If you use a tissue, throw it away immediately and wash your hands. * Clean shared items with a germ-killing home restoration service cleaner. Clean table surfaces, doorknobs, and light switches. Do not share towels, silverware, and dishes with people who are sick. Wash bed sheets, towels, silverware, and dishes with soap and water. * Wear a mask over your mouth and nose if you are sick. The face mask may help protect others from becoming infected with the flu. Wear the mask when in common areas of your home or if you seek care with a healthcare provider. * Stay away from others if you are sick. Stay at home until 24 hours after your fever and symptoms are gone. Clinical Impressions Clinical Impression: Influenza Instructions Patient Instructions: DI for Influenza -- Adult, Influenza Discharge ED Provider: Chayo Aguirre [facility] [place] HPI General Stated complaint: congestion, fever body aches Mode of Arrival: Ambulatory Source of Information: Patient Limitations: No Limitations Time Seen by Provider: 11/02/23 14:39 Description of Symptoms (Recalled from Triage Doc. by RN): PATIENT C/O SORE THROAT, CHILLS, LOW-GRADE FEVER, BODY ACHES, SINUS PRESSURE, RIB PAIN AND COUGH X 2 DAYS HEENT Symptoms (Recalled from RN notes): Yes Resp Symptoms (Recalled from RN notes): Yes Skin Symptoms (Recalled from RN notes): No MS Symptoms (Recalled from RN notes): No Functional Status (Recalled from RN notes): WNL History of Present Illness Provider Complaint: Patient states that she was seen and treated a few weeks ago for sinus infection States for the last couple of days she has been having sinus congestion, body aches, chills, headache muscle aches and cough States today she wasnt feeling any better so she came in to get checked Related Data Home Medications Medication Instructions Recorded Confirmed multivitamin 1 tab PO DAILY 09/25/22 10/22/22 omega 7-els-yvl-fish oil 300 1 cap PO DAILY 09/25/22 10/22/22 mg-1,000 mg capsule (Fish Oil) trazodone 50 mg tablet 50 mg PO HS PRN 09/25/22 10/22/22 omeprazole 20 mg capsule,delayed 20 mg PO DAILY 10/22/22 10/22/22 release Previous Rx's Medication Instructions Recorded estradiol 0.01% (0.1 mg/gram) 1 g vaginal WEEKLY #42.5 grams 08/21/22 vaginal cream doxycycline hyclate 100 mg capsule 100 mg PO BID 7 days #14 caps 10/02/22 fluticasone propionate 50 2 spray intranasal DAILY allergies 10/02/22 mcg/actuation nasal #16 grams spray,suspension (Flonase Allergy Relief) levocetirizine 5 mg tablet (Xyzal) 5 mg PO DAILY #90 tabs 10/02/22 guaifenesin 600 mg tablet, 1,200 mg PO BID PRN cough #20 tabs 11/02/23 extended release 12 hr (Mucinex) oseltamivir 75 mg capsule (Tamiflu) 75 mg PO Q12H 5 days #10 caps 11/02/23 Allergies Allergy/AdvReac Type Severity Reaction Status Date / Time cephalexin Allergy Severe SWELLS AND Verified 10/22/22 15:34 DIFFICULTY BREATHING Penicillins Allergy Severe SWELLS AND Verified 10/22/22 15:34 DIFFICULTY BREATHING bupropion Allergy Intermediate I-HIVES Verified 10/22/22 15:34 codeine Allergy Unknown HEART RACES Verified 10/22/22 15:34 amoxicillin Allergy Verified 11/02/23 14:21 Worker's Comp Is this a Worker's Comp case?: No [facility] Disclaimer: The information contained in this section may have been updated after the patient was seen, as this information can be updated by other users. Medical History (Updated 11/02/23 @ 14:48 by Chayo Aguirre APRN) Deviated septum GERD (gastroesophageal reflux disease) Nasal drainage Surgical History History of bariatric surgery History of cholecystectomy Family History Other Diabetes Social History Smoking Status: Former smoker smoking status stop date: 2003 alcohol intake: current substance use type: denies use current occupational status: retired Travel in the last 8 weeks: None household members: family housing: house caffeine: No ROS Obtained: Yes All systems reviewed & no additional complaints except as documented and Yes Systems reviewed as appropriate & no additional complaints except as documented Constitutional Constitutional: Reports system reviewed and no additional complaints, except as documented, Reports as per HPI, Reports body ache, Reports chills, Reports fever(s) and Reports headache(s) ENT Ears, Nose, Mouth, and Throat: Reports system reviewed and no additional complaints, except as documented, Reports as per HPI, Reports headache(s), Reports nasal congestion and Reports nasal discharge Cardiovascular Cardiovascular: Reports system reviewed and no additional complaints, except as documented and Reports as per HPI Respiratory Respiratory: Reports system reviewed and no additional complaints, except as documented, Reports as per HPI, Denies shortness of breath and Reports cough Gastrointestinal Gastrointestingal: Reports system reviewed and no additional complaints, except as documented and as per HPI Musculoskeletal Musculoskeletal: Reports system reviewed and no additional complaints, except as documented, Reports as per HPI and Reports other (body aches and muscle aches) Neurologic Neurologic: Reports headache(s) Physical Exam General General appearance: alert and in no apparent distress ENT ENT exam: Present mucous membranes moist Expanded ENT Exam Nose exam: Absent sinus tenderness Respiratory Respiratory exam: Present normal lung sounds bilaterally; Absent respiratory distress or wheezes Cardiovascular Cardiovascular exam: Present regular rate, normal rhythm and normal heart sounds Neurological Exam Neurological exam: Present alert, oriented X3 and normal gait Medical Decision Making Victor Hugo Inquiry Pt receiving controlled substance: No Victor Hugo was queried for this patient: No Vital Signs: 11/02/23 14:10 Temperature 98.6 F Temperature Source Oral Pulse Rate [Right Brachial] 90 Respiratory Rate 18 Blood Pressure [Right Arm] 149/86 H Blood Pressure Mean [Right Arm] 107 Blood Pressure Source [Right Arm] Automatic Cuff Blood Pressure Position [Right Arm] Sitting 02 Sat by Pulse Oximetry 100 Oxygen Delivery Method Room Air Lab Data Lab results reviewed: Yes I reviewed the patient's lab results. Lab Results 11/02/23 14:24: Influenza Type A Ag Positive A, Influenza Type B Ag Negative
[2023-11-02 14:53] VITALS: BP 149/86; PULSE 90; RESP 18; TEMP 37; O2SAT 100
== END 2023-11-02 14:56 | disposition home or self-care (01) ==
PROVIDERS: Emergency Provider Nurse Practitioner; PCP Family Medicine
DX: J10.1 Influenza due to other identified influenza virus with other respiratory manifestations (principal); R50.9 Fever, unspecified; R09.81 Nasal congestion; R51.9 Headache, unspecified; R05.9 Cough, unspecified; M79.18 Myalgia, other site; K21.9 Gastro-esophageal reflux disease without esophagitis
CPT/HCPCS: 87804; 99212; 99214; G0463

== ENCOUNTER 2023-12-31 07:49 | Outpatient (CLI) | payer BC, SELFPAY ==
--- NOTE | 2023-12-31 07:54 | MM_ITS ---
PROCEDURE INFORMATION: Exam: MG Bilateral Screening 3D Mammography Exam date and time: 12/31/2023 7:51 AM Age: 58 years old Clinical indication: Screening mammogram TECHNIQUE: Imaging protocol: Bilateral Screening tomosynthesis and 2D mammography including computer-aided detection (CAD) when performed. COMPARISON: 1. MG MM DIG SCREENING MAMM BI W/CAD 05/16/2022 8:37 AM 2. MG MM DIG SCREENING MAMM BI W/CAD 05/02/2021 8:01 AM 3. MG MM DIG SCREENING MAMM BI W/CAD 04/21/2020 8:06 AM 4. MG DIG MAMM-SCREEN DANNY 03/11/2019 8:30 AM FINDINGS: MAMMOGRAPHY: Breast composition: There are scattered areas of fibroglandular density. Mass: None. Architectural distortion: No new or suspicious architectural distortion. Calcifications: No new or suspicious calcifications are present Asymmetric density: No new or suspicious asymmetric density is present Skin thickening: None. Axillary adenopathy: None. IMPRESSION: No mammographic evidence of malignancy. Recommend annual screening mammography unless otherwise clinically indicated. ASSESSMENT: BI-RADS category 1: Negative.
[2023-12-31 09:45] LABS: Basophils # 0.1 K/mm3 (0-0.2); Basophils % 1.8 % (0.1-2.0); Eosinophils # 0.1 K/mm3 (0.0-0.4); Eosinophils % 1.4 % (0.1-12.0); Hematocrit 43.6 % (37.0-47.0); Hemoglobin 14.2 g/dL (12.2-16.2); Lymphocytes # 2.5 K/mm3 (0.7-4.5); Lymphocytes % 41.5 % (10-50); Mean Corpuscular HGB Conc 32.7 g/dL (31.8-35.4); Mean Corpuscular Volume 97.9 fl (81-99); Mean Platelet Volume 7.7 fl (7.4-10.4); Monocytes # 0.4 K/mm3 (0.1-1.0); Neutrophils # 2.9 K/mm3 (1.8-7.8); Neutrophils % 48.3 % (37.0-80.0); Platelet Count 329 K/mm3 (142-424); Red Blood Count 4.45 M/mm3 (4.20-5.40); Red Cell Distribution Width 13.2 % (11.5-17.5)
[2023-12-31 10:26] LABS: Alanine Aminotransferase 26 U/L (12-78); Albumin Level 4.7 g/dl (3.5-5.0); Albumin/Globulin Ratio 1.8 (1.1-1.8); Alkaline Phosphatase 88 U/L (38-126); Aspartate Amino Transferase 33 U/L (14-36); Bilirubin,Total 0.5 mg/dl (0.2-1.3); Blood Urea Nitrogen 14 mg/dl (7-17); Calcium 10.2 mg/dl (8.4-10.2); Carbon Dioxide 33 mmol/L (22.0-30.0); Chloride 104 mmol/L (98-107); Chol/HDL Ratio 3.8 (1-3.5); Cholesterol 310 mg/dl (140-200); Estimated Glomerular Filt Rate 127 ml/min (>60); GFR (African American) 154 ML/MIN (>60); Globulin 2.6 g/dL (1.3-3.2); Glucose 98 mg/dl (74-100); HDL Cholesterol 81 mg/dl (40-60); Sodium 141 mmol/L (136-145); Total Protein,Serum 7.3 g/dl (6.3-8.2); Triglycerides 93 mg/dl (30-150); VLDL Cholesterol 19 mg/dL (0-40)
[2023-12-31 10:37] LABS: Direct LDL Cholesterol 157.62 mg/dL (100-129)
== END 2023-12-31 23:59 ==
PROVIDERS: PCP Family Medicine; Visit Provider Nurse Practitioner Obstetrics & Gynecology
DX: Z12.31 Encounter for screening mammogram for malignant neoplasm of breast (principal); Z01.419 Encounter for gynecological examination (general) (routine) without abnormal findings
CPT/HCPCS: 36415; 77063; 77067; 80053; 80061; 85025

== ENCOUNTER 2024-12-16 12:02 | Emergency (ER) | payer BC, SELFPAY ==
[2024-12-16] VITALS (9 sets, daily range): BP systolic 109–193; BP diastolic 55–104; PULSE 70–89; RESP 12–16; TEMP 36.7–36.8; O2SAT 95–98; BMI 35.3
--- NOTE | 2024-12-16 12:05 | ECG_ITS ---
APPROVED REPORT Exam: Resting ECG HR:90 bpm ECG Measurements Heart Rate 90 AXES ID 150 P 56 QRSd 84 QRS 55 QT 351 T 65 QTc 399 Conclusion SINUS RHYTHM NONSPECIFIC ST & T-WAVE ABNORMALITY BORDERLINE ECG UNCONFIRMED REPORT Electronically signed by : KALI RICHTER, 12/17/2024 02:23:19
--- NOTE | 2024-12-16 12:09 | XR_ITS ---
FINAL REPORT CLINICAL HISTORY: chest pain, cough, dizziness COMPARISON: 02/19/2022 FINDINGS: No acute pulmonary density is evident. There is no evidence of effusion or other pleural disease. The mediastinum has a normal appearance. The cardiac silhouette is unremarkable. IMPRESSION: Unremarkable chest exam. Reviewed, Interpreted and Dictated by Daniel Gale MD Transcribed by Idalia Gentile Authenticated and [facility]
--- NOTE | 2024-12-16 12:12 | ED_ITS ---
<Statement entered by Matt Camilo MD - 12/17/24 09:07> I was consulted by the KENNETH, and we discussed the complexity of the problems being addressed. I approved the treatment and management plan for this patient's care in the emergency department, thus performing a substantive portion of the medical decision making. Matt Camilo MD Discharge Plan Disposition Patient Disposition: Home, Self-Care Condition: Good Prescriptions Prescriptions: New prednisone 50 mg tablet 50 mg PO DAILY 5 Days Qty: 5 0RF albuterol sulfate 90 mcg/actuation HFA aerosol inhaler 1 inh inhalation Q4H PRN (Reason: shortness of breath or wheezing) Qty: 8.5 0RF oyrcmgwpxgmbtfm-qmehotiyn-ZT [Bromfed DM] 2-30-10 mg/5 mL syrup 5 ml PO Q4H PRN (Reason: sinus symptoms) Qty: 118 0RF No Action metformin 500 mg tablet extended release 24 hr PO Patient Comments: TAKE ONE TABLET BY MOUTH EVERY DAY with dinner FOR 7 DAYS, THEN TAKE TWO TABLETS ONCE DAILY with dinner sertraline 100 mg tablet 100 mg PO DAILY Patient Comments: TAKE ONE TABLET BY MOUTH EVERY DAY omeprazole 40 mg capsule,delayed release(DR/EC) 40 mg PO BID Patient Comments: TAKE ONE CAPSULE BY MOUTH TWICE DAILY estradiol 0.01 % (0.1 mg/gram) cream 0.5 g vaginal .twice Qty: 42.5 3RF multivitamin Tablet 1 tab PO DAILY omega 3-lwo-mvw-fish oil [Fish Oil] 300-1,000 mg capsule 1 cap PO DAILY fluticasone propionate [Flonase Allergy Relief] 50 mcg/actuation spray,suspension 2 spray intranasal DAILY Qty: 16 3RF Rx Instructions: administer into each nostril levocetirizine [Xyzal] 5 mg tablet 5 mg PO DAILY Qty: 90 3RF Referrals Follow up/Referrals: Daniel Polk MD [Primary Care Provider] - See instructions Juan William MD [Staff Physician] - See instructions Activity Restrictions/Add. Instructions Additional Instructions/Restrictions: As we discussed I am going to refer to cardiology for further workup of your symptoms today including high blood pressure and chest pain. I am sending a medication in to help with your cough and bronchial symptoms. If you have continued new or worsening signs or symptoms follow-up with your PCP or return to the ER as needed. Clinical Impressions Clinical Impression: Bronchitis, Abnormal blood pressure Chest pain Qualifiers: Chest pain type: unspecified Qualified Code(s): R07.9 - Chest pain, unspecified Print Language Print Language: Eritrean Discharge ED Provider: Matt Camilo HPI <EVELYN Chapin - Last Filed: 12/16/24 16:01> General Chief Complaint: Chest Pain Stated Complaint: Chest Pain Time Seen by Provider: 12/16/24 12:03 Mode of Arrival: Ambulatory Source of Information: Patient Description of Symptoms (Recalled from ER Triage Doc. by RN): pt presents to ED with c/o dizziness, shortness of air, chest pain. only symptoms remaining at time of triage is dizziness. symptoms began around 10 am. History of Present Illness HPI narrative: Patient presents for evaluation of lightheadedness shortness of air chest pressure. Patient states that her symptoms began today. She went to the school nurse who noted that her blood pressure was significantly elevated. Patient at baseline is on no blood pressure medications but is on fluticasone and Zyrtec for allergies metformin for diabetes omeprazole for GERD and obstructive sleep apnea. Patient also has a coarse bronchial cough in the ER that she states is from sinus drainage . Patient denies fever chills hemoptysis hematochezia melena nausea vomiting or diarrhea. Related Data Home Medications ?Medication ?Instructions ?Recorded ?Confirmed multivitamin 1 tab PO DAILY 09/25/22 12/31/23 omega 6-zun-ovr-fish oil 300 1 cap PO DAILY 09/25/22 12/31/23 mg-1,000 mg capsule (Fish Oil) metformin 500 mg tablet,extended mg PO 12/31/23 12/31/23 release 24 hr omeprazole 40 mg capsule,delayed 40 mg PO BID 12/31/23 12/31/23 release sertraline 100 mg tablet 100 mg PO DAILY 12/31/23 12/31/23 Previous Rx's ?Medication ?Instructions ?Recorded fluticasone propionate 50 2 spray intranasal DAILY allergies 10/02/22 mcg/actuation nasal #16 grams spray,suspension (Flonase Allergy Relief) levocetirizine 5 mg tablet (Xyzal) 5 mg PO DAILY #90 tabs 10/02/22 estradiol 0.01% (0.1 mg/gram) 0.5 g vaginal .twice #42.5 grams 03/23/24 vaginal cream albuterol sulfate 90 mcg/actuation 1 inh inhalation Q4H PRN shortness 12/16/24 aerosol inhaler of breath or wheezing #8.5 grams htxlwgqdehcjfhc-wfkajjonsqkmyum-ML 5 ml PO Q4H PRN sinus symptoms 12/16/24 2 mg-30 mg-10 mg/5 mL oral syrup #118 mL (Bromfed DM) prednisone 50 mg tablet 50 mg PO DAILY 5 days #5 tabs 12/16/24 Allergies Allergy/AdvReac Type Severity Reaction Status Date / Time cephalexin Allergy Severe SWELLS AND Verified 12/31/23 08:37 DIFFICULTY BREATHING Penicillins Allergy Severe SWELLS AND Verified 12/31/23 08:37 DIFFICULTY BREATHING bupropion Allergy Intermediate I-HIVES Verified 12/31/23 08:37 codeine Allergy Unknown HEART RACES Verified 12/31/23 08:37 amoxicillin Allergy Verified 12/31/23 08:37 [facility] <EVELYN Chapin - Last Filed: 12/16/24 16:01> [facility] Disclaimer: The information contained in this section may have been updated after the patient was seen, as this information can be updated by other users. Medical History (Updated 12/16/24 @ 15:17 by EVELYN Chapin) Deviated septum Nasal drainage GERD (gastroesophageal reflux disease) Surgical History (Updated 12/31/23 @ 08:46 by EMERITA Forrest) History of endometrial ablation History of hernia surgery History of cholecystectomy History of bariatric surgery Family History Other Diabetes Social History Smoking Status: Never smoker smoking status stop date: 2003 alcohol intake: current alcohol intake frequency: holidays/special occasions only substance use type: denies use current occupational status: retired Travel in the last 8 weeks: None household members: family housing: house caffeine: No Have you lived/traveled outside US in past 30 days?: No Contact w/someone who lives/traveled outside US past 30 days?: No Exposure to someone with infectious disease in past 14 days?: No Do you have a fever (greater than 100.4 F or 38 C)?: No Have you tested positive for COVID-19: No Exposed to someone with COVID-19 in past 14 days?: No Do you have a sore throat?: No Do you have a cough?: No Do you have any weakness?: No Do you have any diarrhea?: No Are you experiencing any unusual bleeding?: No Do you have any muscle aches/pain?: No Do you have any abdominal pain?: No Are you experiencing loss of taste or smell?: No Other Medical History Have you received the Flu Vaccine for this season: Yes Have you received the Pneumonia Vaccine: No <EVELYN Chapin - Last Filed: 12/16/24 16:01> ROS Obtained: Yes Systems reviewed as appropriate & no additional complaints except as documented Physical Exam <EVELYN Chapin - Last Filed: 12/16/24 16:01> General General appearance: alert and in no apparent distress Respiratory Respiratory exam: Present wheezes (Patient has coarse bronchial sounds with cough however she also has faint end expiratory wheezes in all 4 ovalles as well); Absent normal lung sounds bilaterally Cardiovascular Cardiovascular exam: Present regular rate Extremities Exam Extremities exam: Present normal inspection and full ROM Neurological Exam Neurological exam: Present alert and oriented X3 HEART Score <EVELYN Chapin Last Filed: 12/16/24 16:01> HEART Score HEART Score assessment performed?: Yes History (anamnesis): Slightly suspicious ECG: Normal Age: 45-65 years Risk factors: 3 or more risk factors Troponin: </= normal limit HEART Score: 3 Critical Care <EVELYN Chapin Last Filed: 12/16/24 16:01> Critical Care Time Critical Care Time: No Medical Decision Making <EVELYN Chapin Last Filed: 12/16/24 16:01> Medical Records Medical records reviewed: Yes I reviewed the patient's medical records. Victor Hugo Inquiry Pt receiving controlled substance: No Vital Signs Vital Signs: 12/16/24 12:08 12/16/24 12:10 12/16/24 13:27 Temperature 98.3 F Temperature Source Oral Pulse Rate 70 89 Pulse Rate [Left Radial] 81 Respiratory Rate 12 13 Blood Pressure 109/91 L Blood Pressure [Right Arm] 193/104 H Blood Pressure Mean Blood Pressure Mean [Right Arm] 133 02 Sat by Pulse Oximetry 96 98 96 Oxygen Delivery Method Room Air Room Air 12/16/24 13:30 12/16/24 14:00 12/16/24 14:30 Temperature Temperature Source Pulse Rate 86 78 87 Pulse Rate [Left Radial] Respiratory Rate Blood Pressure 120/73 140/66 124/68 Blood Pressure [Right Arm] Blood Pressure Mean 96 Blood Pressure Mean [Right Arm] 02 Sat by Pulse Oximetry 96 97 95 Oxygen Delivery Method Room Air Room Air 12/16/24 15:00 12/16/24 15:30 Temperature Temperature Source Pulse Rate 75 86 Pulse Rate [Left Radial] Respiratory Rate Blood Pressure 112/55 L 118/66 Blood Pressure [Right Arm] Blood Pressure Mean 74 Blood Pressure Mean [Right Arm] 02 Sat by Pulse Oximetry 96 95 Oxygen Delivery Method Room Air Lab Data Lab results reviewed: Yes I reviewed the patient's lab results. Labs: Lab Results 12/16/24 12:22: SARS-CoV-2 (PCR) Not detected, Influenza A Untype (PCR) Not detected, Influenza Type B (PCR) Not detected 12/16/24 12:40: WBC 5.8, RBC 4.59, Hgb 14.6, Hct 42.7, MCV 93.0, MCH 31.8 H, MCHC 34.2, RDW 12.1, Plt Count 352, MPV 9.5, Neut % (Auto) 36.8 L, Lymph % (Auto) 52.4 H, [place] % (Auto) 8.6, Eos % (Auto) 1.5, Baso % (Auto) 0.5, Neut # (Auto) 2.2, Lymph # (Auto) 3.1, [place] # (Auto) 0.5, Eos # (Auto) 0.1, Baso # (Auto) 0.0, Total Counted 100, Neutrophils % (Manual) 42, Lymphocytes % (Manual) 50, Monocytes % (Manual) 7, Eosinophils % (Manual) 1, Platelet Estimate Normal, RBC Morphology Normal, Sodium 139, Potassium 3.6, Chloride 103, Carbon Dioxide 29, Anion Gap 10.6, BUN 12, Creatinine 0.50 L, Estimated Creat Clear 154, Estimated GFR 127, Est GFR ( Amer) 153, Glucose 94, Calcium 9.9, Magnesium 1.9, Total Bilirubin 0.4, AST 36, ALT 25, Alkaline Phosphatase 89, Troponin I < 0.01, NT-Pro-B Natriuret Pep 42.6, Total Protein 8.5 H, Albumin 5.2 H, Globulin 3.3 H, Albumin/Globulin Ratio 1.6, HCV Ab HERNESTO w/Rflx PCR Qn Negative, HIV Ag/Ab Combo Qual Negative 12/16/24 15:16: Troponin I < 0.01 12/16/24 12:40 12/16/24 12:40 Response Orders (Tests/Meds): ED MEDICATIONS Discontinued Medications Generic Name Dose Route Start Last Admin Trade Name Freq PRN Reason Stop Dose Admin Albuterol/Ipratropium 6 ml 12/16/24 12:12 12/16/24 12:53 Ipratropium/Albuterol 3 Ml Neb IH 12/16/24 12:13 6 ml ONCE ONE Administration Dexamethasone Sodium Phosphate 10 mg 12/16/24 12:12 12/16/24 12:53 Dexamethasone 4mg/Ml 5ml Mdv IV 12/16/24 12:13 10 mg ONCE ONE Administration Magnesium Sulfate 2 gm in 50 mls @ 50 mls/hr 12/16/24 12:31 12/16/24 12:53 Magnesium Sulfate 2gm/50ml Premix IV 12/16/24 13:30 50 mls/hr ONCE ONE Administration ORDERS Category Date Time Status CXR 2 view (NOT portable) [XR chest 2V] Stat Exams 12/16/24 12:09 Completed BNP [NT Pro Brain Natriuretic Pep.] Stat Lab 12/16/24 12:40 Completed Complete Blood Count Auto Diff Stat Lab 12/16/24 12:40 Completed Comprehensive Metabolic Panel Stat Lab 12/16/24 12:40 Completed Full Resp Panel w/COVID (H) Routine Lab 12/16/24 12:22 Received HIV Combo Stat Lab 12/16/24 12:40 Completed Hepatitis C Ab Qual. W/ RFX Stat Lab 12/16/24 12:40 Completed MAG [Magnesium] Stat Lab 12/16/24 12:40 Completed Rapid PCR Covid and Flu A/B Stat Lab 12/16/24 12:22 Completed Troponin I Q3H Lab 12/16/24 12:40 Completed Troponin I Q3H Lab 12/16/24 15:16 Completed MDM Narrative Medical Decision Narrative: In summary patient is a 59-year-old female who presents to the emergency department for evaluation of lightheadedness cough congestion shortness of breath and chest pain. Patient is initially hypertensive with a blood pressure of 193/104 with a pulse of 81 and normal sinus rhythm on the bedside monitor breathing 12 times a minute satting at 96% on room air upon arrival, afebrile at 98.3. Physical exam is remarkable for no reproducible chest pain on palpation, patient has coarse bronchial cough and faint end expiratory wheezes in all 4 ovalles with no increased work of breathing or accessory muscle use. Patient has boggy nasal mucosa with clear rhinorrhea. Differential diagnosis includes uncontrolled hypertension versus ACS versus CHF versus pulmonary edema versus upper or lower respiratory tract infection etc. Initial workup will be conducted with hematologic labs COVID flu swabs plain film chest x-ray. Initial interventions include DuoNeb Decadron. Initial workup reviewed by me shows that her hematologic labs are nonactionable initial troponin is undetectable and my informal interpretation of her plain film chest x-ray shows no acute processes. Upon repeat evaluation patient actually reported improvement with both her breathing and her chest pain after initial intervention. Given this the patient was placed in observation status at 1330. Medical necessity for observational status is serial troponins. The patient was provided serial reevaluations continuous cardiac monitoring pulse oximetry while awaiting results. Patient's second troponin came back and is again undetectable at 6000 hours. Given this feel the patient is safe for discharge with follow-up with cardiology for further restratification and testing and her PCP if she has any continued new or worsening signs or symptoms. Total time in observation was 2 and half hours. <Matt Camilo MD - Last Filed: 12/16/24 12:20> Vital Signs Vital Signs: 12/16/24 12:08 12/16/24 12:10 12/16/24 13:27 Temperature 98.3 F Temperature Source Oral Pulse Rate 70 89 Pulse Rate [Left Radial] 81 Respiratory Rate 12 13 Blood Pressure 109/91 L Blood Pressure [Right Arm] 193/104 H Blood Pressure Mean Blood Pressure Mean [Right Arm] 133 02 Sat by Pulse Oximetry 96 98 96 Oxygen Delivery Method Room Air Room Air 12/16/24 13:30 12/16/24 14:00 12/16/24 14:30 Temperature Temperature Source Pulse Rate 86 78 87 Pulse Rate [Left Radial] Respiratory Rate Blood Pressure 120/73 140/66 124/68 Blood Pressure [Right Arm] Blood Pressure Mean 96 Blood Pressure Mean [Right Arm] 02 Sat by Pulse Oximetry 96 97 95 Oxygen Delivery Method Room Air Room Air 12/16/24 15:00 12/16/24 15:30 Temperature Temperature Source Pulse Rate 75 86 Pulse Rate [Left Radial] Respiratory Rate Blood Pressure 112/55 L 118/66 Blood Pressure [Right Arm] Blood Pressure Mean 74 Blood Pressure Mean [Right Arm] 02 Sat by Pulse Oximetry 96 95 Oxygen Delivery Method Room Air Lab Data Labs: Lab Results 12/16/24 12:22: SARS-CoV-2 (PCR) Not detected, Influenza A Untype (PCR) Not detected, Influenza Type B (PCR) Not detected 12/16/24 12:40: WBC 5.8, RBC 4.59, Hgb 14.6, Hct 42.7, MCV 93.0, MCH 31.8 H, MCHC 34.2, RDW 12.1, Plt Count 352, MPV 9.5, Neut % (Auto) 36.8 L, Lymph % (Auto) 52.4 H, [place] % (Auto) 8.6, Eos % (Auto) 1.5, Baso % (Auto) 0.5, Neut # (Auto) 2.2, Lymph # (Auto) 3.1, [place] # (Auto) 0.5, Eos # (Auto) 0.1, Baso # (Auto) 0.0, Total Counted 100, Neutrophils % (Manual) 42, Lymphocytes % (Manual) 50, Monocytes % (Manual) 7, Eosinophils % (Manual) 1, Platelet Estimate Normal, RBC Morphology Normal, Sodium 139, Potassium 3.6, Chloride 103, Carbon Dioxide 29, Anion Gap 10.6, BUN 12, Creatinine 0.50 L, Estimated Creat Clear 154, Estimated GFR 127, Est GFR ( Amer) 153, Glucose 94, Calcium 9.9, Magnesium 1.9, Total Bilirubin 0.4, AST 36, ALT 25, Alkaline Phosphatase 89, Troponin I < 0.01, NT-Pro-B Natriuret Pep 42.6, Total Protein 8.5 H, Albumin 5.2 H, Globulin 3.3 H, Albumin/Globulin Ratio 1.6, HCV Ab HERNESTO w/Rflx PCR Qn Negative, HIV Ag/Ab Combo Qual Negative 12/16/24 15:16: Troponin I < 0.01 Response Orders (Tests/Meds): ED MEDICATIONS Discontinued Medications Generic Name Dose Route Start Last Admin Trade Name [place] PRN Reason Stop Dose Admin Albuterol/Ipratropium 6 ml 12/16/24 12:12 12/16/24 12:53 Ipratropium/Albuterol 3 Ml Neb IH 12/16/24 12:13 6 ml ONCE ONE Administration Dexamethasone Sodium Phosphate 10 mg 12/16/24 12:12 12/16/24 12:53 Dexamethasone 4mg/Ml 5ml Mdv IV 12/16/24 12:13 10 mg ONCE ONE Administration Magnesium Sulfate 2 gm in 50 mls @ 50 mls/hr 12/16/24 12:31 12/16/24 12:53 Magnesium Sulfate 2gm/50ml Premix IV 12/16/24 13:30 50 mls/hr ONCE ONE Administration ORDERS Category Date Time Status CXR 2 view (NOT portable) [XR chest 2V] Stat Exams 12/16/24 12:09 Completed BNP [NT Pro Brain Natriuretic Pep.] Stat Lab 12/16/24 12:40 Completed Complete Blood Count Auto Diff Stat Lab 12/16/24 12:40 Completed Comprehensive Metabolic Panel Stat Lab 12/16/24 12:40 Completed Full Resp Panel w/COVID ([facility]) Routine Lab 12/16/24 12:22 Received HIV Combo Stat Lab 12/16/24 12:40 Completed Hepatitis C Ab Qual. W/ RFX Stat Lab 12/16/24 12:40 Completed MAG [Magnesium] Stat Lab 12/16/24 12:40 Completed Rapid PCR Covid and Flu A/B Stat Lab 12/16/24 12:22 Completed Troponin I Q3H Lab 12/16/24 12:40 Completed Troponin I Q3H Lab 12/16/24 15:16 Completed ECG Data Tracing #1: ECG Narrative: Independently interpreted by me, rate is 90, rhythm is regular, axis is normal, no ST elevation in anatomical contiguous leads, QTc 399.
[2024-12-16 12:25] LABS: Coronavirus 19, PCR Not Detected (NotDetected); Influenza A, PCR Not Detected (NotDetected); Influenza B, PCR Not Detected (NotDetected)
[2024-12-16 12:52] LABS: Basophils % 0.5 % (0.1-2.0); Eosinophils # 0.1 K/mm3 (0.0-0.4); Eosinophils % 1.5 % (0.1-12.0); Hematocrit 42.7 % (37.0-47.0); Hemoglobin 14.6 g/dL (12.2-16.2); Lymphocytes # 3.1 K/mm3 (0.7-4.5); Lymphocytes % 52.4 % (10-50); Mean Corpuscular HGB Conc 34.2 g/dL (31.8-35.4); Mean Corpuscular Hemoglobin 31.8 pg (27.0-31.2); Mean Platelet Volume 9.5 fl (7.4-10.4); Monocytes # 0.5 K/mm3 (0.1-1.0); Monocytes % 8.6 % (1.7-9.3); Neutrophils # 2.2 K/mm3 (1.8-7.8); Neutrophils % 36.8 % (37.0-80.0); Platelet Count 352 K/mm3 (142-424); Red Blood Count 4.59 M/mm3 (4.20-5.40); Red Cell Distribution Width 12.1 % (11.5-17.5); White Blood Count 5.8 K/mm3 (4.8-10.8)
[2024-12-16] MEDS: IPRATROPIUM/ALBUTEROL 3 ML NEB 6 ML IH (12:53)
[2024-12-16] MEDS: MAGNESIUM SULFATE IN WATER 2 GM/50 ML PIGGYBACK IV (12:53)
[2024-12-16] MEDS: DEXAMETHASONE 4MG/ML 5ML MDV 10 MG IV (12:53)
[2024-12-16 12:55] LABS: MANUAL DIFFERENTIAL MANUAL DIFFERENTIAL (MANUAL DIFF)
[2024-12-16 12:58] LABS: Albumin Level 5.2 g/dl (3.5-5.0); Chloride 103 mmol/L (98-107); Potassium 3.6 mmoL/L (3.5-5.1); Sodium 139 mmol/L (136-145)
[2024-12-16 13:01] LABS: Alanine Aminotransferase 25 U/L (12-78); Albumin/Globulin Ratio 1.6 (1.1-1.8); Alkaline Phosphatase 89 U/L (38-126); Anion Gap 10.6 mEq/L (5-15); Aspartate Amino Transferase 36 U/L (14-36); Bilirubin,Total 0.4 mg/dl (0.2-1.3); Blood Urea Nitrogen 12 mg/dl (7-17); Calcium 9.9 mg/dl (8.4-10.2); Carbon Dioxide 29 mmol/L (22.0-30.0); Creatinine Clearance Estimated 154 mL/min (50-200); Estimated Glomerular Filt Rate 127 ml/min (>60); GFR (African American) 153 ML/MIN (>60); Globulin 3.3 g/dL (1.3-3.2); Glucose 94 mg/dl (74-100); Total Protein,Serum 8.5 g/dl (6.3-8.2)
[2024-12-16 13:02] LABS: Magnesium 1.9 mg/dl (1.6-2.3)
[2024-12-16 13:10] LABS: Eosinophils % 1 % (0-3); Lymphocytes % 50 % (10-50); Monocytes % 7 % (2-9); Neutrophils % 42 % (42-76); Platelet Estimate Normal; RBC Morphology Normal; Total Cells Counted 100
[2024-12-16 13:11] LABS: NT Pro Brain Natriuretic Pep. 42.6 pg/mL (0-125)
[2024-12-16 13:15] LABS: Troponin I < 0.01 ng/ml (0.00-0.034)
[2024-12-16 13:45] LABS: Adenovirus,PCR Not Detected (NotDetected); Bordetella Pertussis Not Detected (NotDetected); Chlamydophila Pneumoniae, PCR Not Detected (NotDetected); Coronavirus 19, PCR Not Detected (NotDetected); Coronavirus 229E Not Detected (NotDetected); Coronavirus NL63 Not Detected (NotDetected); Coronavirus OC43 Not Detected (NotDetected); Coronovirus HKU1,PCR Not Detected (NotDetected); Human Metapneumovirus Not Detected (NotDetected); Influenza A, PCR Not Detected (NotDetected); Influenza AH1, 2009 Not Detected (NotDetected); Influenza AH1, PCR Not Detected (NotDetected); Influenza AH3,PCR Not Detected (NotDetected); Influenza B, PCR Not Detected (NotDetected); Mycoplasma Pneumoniae, PCR Not Detected (NotDetected); Parainfluenza 1, PCR Not Detected (NotDetected); Parainfluenza 2, PCR Not Detected (NotDetected); Parainfluenza 3, PCR Not Detected (NotDetected); Parainfluenza 4, PCR Not Detected (NotDetected); Respiratory Syncytial Virus Not Detected (NotDetected); Rhinovirus/Enterovirus Not Detected (NotDetected)
[2024-12-16 13:52] LABS: HIV Combo NEGATIVE (Negative)
[2024-12-16 14:00] LABS: Hepatitis C Ab Qual. W/ RFX NEGATIVE (Negative)
[2024-12-16 15:51] LABS: Troponin I < 0.01 ng/ml (0.00-0.034)
== END 2024-12-16 16:10 | disposition home or self-care (01) ==
PROVIDERS: Physician Assistant; Emergency Provider Emergency Medicine; PCP Family Medicine
DX: J40 Bronchitis, not specified as acute or chronic (principal); R07.9 Chest pain, unspecified; R06.02 Shortness of breath; R42 Dizziness and giddiness; R05.9 Cough, unspecified; R09.81 Nasal congestion; I10 Essential (primary) hypertension
CPT/HCPCS: 71046; 80053; 83735; 83880; 84484; 85007; 85025; 85027; 86803; 87389; 87633; 87636; 93005; 96365; 96374; 99284; J1100; J3475; J7620

== ENCOUNTER 2024-12-27 14:53 | Outpatient (CLI) | payer BC, SELFPAY ==
[2024-12-27 16:08] LABS: D-Dimer 0.45 ug/mL (0.0-0.5)
[2024-12-27 16:38] LABS: NT Pro Brain Natriuretic Pep. < 20.0 pg/mL (0-125)
[2024-12-27 17:00] LABS: Thyroid Stimulating Hormone 1.11 uIU/mL (0.465-4.68)
== END 2024-12-27 23:59 | disposition home or self-care (01) ==
LOC: LAB 14:53
PROVIDERS: PCP Family Medicine; Visit Provider Internal Medicine
DX: I10 Essential (primary) hypertension (principal); R42 Dizziness and giddiness; R07.9 Chest pain, unspecified; R94.31 Abnormal electrocardiogram [ECG] [EKG]
CPT/HCPCS: 36415; 83880; 84439; 84443; 85378

== ENCOUNTER 2025-01-07 07:48 | Outpatient (CLI) | payer BC, SELFPAY ==
--- OUTSIDE RECORDS SUMMARY | 2025-01-07 07:51 | XMS_ITS ---
Author Organization Unknown Medications Medication Instructions Effective Dates (start - stop) Status levocetirizine dihydrochlori de 5 MG Oral Tablet [id number]:00:00.000+00: 00 - Completed doxycycline hyclate 100 MG O ral Capsule [id number]:00:00.000+00: 00 - Completed doxycycline monohydrate 100 MG Oral Tablet [id number]:00:00.000+00: 00 - Completed doxycycline monohydrate 100 MG Oral Tablet [id number]:00:00.000+00: 00 - Completed omeprazole 40 MG Delayed Rel ease Oral Capsule [id number]:00:00.000+00: 00 - Completed omeprazole 40 MG Delayed Rel ease Oral Capsule [id number]:00:00.000+00: 00 - Completed omeprazole 40 MG Delayed Rel ease Oral Capsule [id number]:00:00.000+00: 00 - Completed omeprazole 40 MG Delayed Rel ease Oral Capsule [id number]:00:00.000+00: 00 - Completed omeprazole 40 MG Delayed Rel ease Oral Capsule [id number]:00:00.000+00: 00 - Completed omeprazole 40 MG Delayed Rel ease Oral Capsule [id number]:00:00.000+00: 00 - Completed omeprazole 40 MG Delayed Rel ease Oral Capsule [id number]:00:00.000+00: 00 - Completed omeprazole 20 MG Delayed Rel ease Oral Capsule [id number]:00:00.000+00: 00 - Completed - [id number]:00 :00.000+00: 00 - Completed omeprazole 40 MG Delayed Rel ease Oral Capsule [id number]:00:00.000+00: 00 - Completed omeprazole 40 MG Delayed Rel ease Oral Capsule [id number]:00:00.000+00: 00 - Completed omeprazole 40 MG Delayed Rel ease Oral Capsule [id number]:00:00.000+00: 00 - Completed omeprazole 40 MG Delayed Rel ease Oral Capsule [id number]:00:00.000+00: 00 - Completed omeprazole 40 MG Delayed Rel ease Oral Capsule [id number]:00:00.000+00: 00 - Completed trazodone hydrochloride 50 M G Oral Tablet [id number]:00:00.000+00: 00 - Completed levocetirizine dihydrochlori de 5 MG Oral Tablet [id number]:00:00.000+00: 00 - Completed benzonatate 100 MG Oral Capsule [id number]:00:00.000+00: 00 - Completed fluticasone propionate 0.05 MG/ACTUAT Metered Dose Nasal [place] [id number]:00:00 .000+00: 00 - Completed estradiol 0.1 MG/ML Vaginal Cream [id number]:00:00.000+00: 00 - Completed topiramate 25 MG Oral Tablet 12-03-02:00:00.000+00: 00 - Completed fluticasone propionate 0.05 MG/ACTUAT Metered Dose Nasal [place] [id number]:00:00 .000+00: 00 - Completed sertraline 50 MG Oral Tablet 12-03-18:00:00.000+00: 00 - Completed sertraline 100 MG Oral Tablet 20-04-24:00:00.000+00: 00 - Completed {21 (methylprednisolone 4 MG Oral Tablet) } Pack [id number]:00:00.000+00: 00 - Completed topiramate 25 MG Oral Tablet 12-01-30:00:00.000+00: 00 - Completed diethylpropion hydrochloride 25 MG Oral Tablet [id number]:00:00.000+00: 00 - Completed {21 (methylprednisolone 4 MG Oral Tablet) } Pack [id number]:00:00.000+00: 00 - Completed - [id number]:00 :00.000+00: 00 - Completed levocetirizine dihydrochlori de 5 MG Oral Tablet [id number]:00:00.000+00: 00 - Completed dextromethorphan hydrobromid e 3 MG/ML / promethazine hydrochloride 1.25 MG/ML Oral Solution [id number]:00:00.00: 00 - Completed Patient Care team information Name Category Status Period Participants - - Proposed period not known -
--- NOTE | 2025-01-07 08:00 | CA_ITS ---
APPROVED REPORT EXAM: Comprehensive 2D, Doppler, and color-flow Echocardiogram Junior Oracle Dba: Maggie Unger RT(R) Ht: 4 ft 11 in Wt: 179lbs BSA: 1.76 BP: 127/85 mmHg Indications: CP, abn EKG, HTN, dyspnea 2D Dimensions LVEF (Durán's) 56.10 % F: 54 - 74 LV Volume 90.00 mL F: 46 - 106 LV Volume Index 51.1 mL/m2 F: 29 - 61 LA Volume 37.60 mL LA Volume Index 21.36 mL/m2 (M/F) 16-34 EF AP4 61.40 % EF AP2 50.1 % EF BP 56.1 % GL Strain -20.5 % M-Mode Dimensions RVDd 2.01 cm (0.9-2.6) LA Diam 4.27 cm (1.9-4.0) LVDd 4.47 cm (3.5-5.7) LVDs 3.34 cm (3.5-5.7) IVSd 0.76 cm (0.6-1.1) PWd 0.76 cm (0.6-1.1) EF (Teich) 50.10% FS 25.30% EDV (Teich) 91.00 mL TAPSE 2.22 (<1.7) ESV (Teich) 45.40 mL LV Diastology E Decel Time 167 (160-240 msec) E/A Ratio 0.9 Mitral Valve MV E Max Arsalan. 76.0 (40-130 cm/s) MV A Velocity 80.0 (40-130 cm/s) E/A Ratio 0.95 MV PHT 49.0 ms Tricuspid Valve TR P. Velocity 246.00 cm/s RAP Estimate 10.00 mmHg RVSP 34.20 mmHg Left Ventricle The left ventricle is normal size. The left ventricular systolic function is normal. The left ventricular ejection fraction is within the normal range. There is increased overall thickness. There is normal LV segmental wall motion. The left ventricular diastolic function is normal. LVEF is 55%. Right Ventricle The right ventricle is normal size. The right ventricular systolic function is normal. Atria The left atrium size is normal. The right atrium size is normal. There is no Doppler evidence of interatrial shunt. Aortic Valve The aortic valve is mildly thickened. Trace aortic regurgitation. There is no aortic valvular stenosis. Mitral Valve The mitral valve is normal in structure. No evidence of mitral valve stenosis. Trace mitral regurgitation. Tricuspid Valve Tricuspid valve is grossly normal in structure and function. Mild tricuspid regurgitation. RVSP is 20-25 mmHg. Pulmonic Valve The pulmonary valve is normal in structure. Trace pulmonic regurgitation. Great Vessels The aortic root is normal in size. IVC is normal in size and collapses >50% with inspiration. Pericardium There is no pericardial effusion. Other Information Study Quality: Fair Conclusion Normal biventricular systolic function. Mild TR. Electronically signed by : Margarita William MD 01/10/2025 22:24:40
== END 2025-01-07 23:59 | disposition home or self-care (01) ==
LOC: RT 07:49
PROVIDERS: PCP Family Medicine; Visit Provider Internal Medicine
DX: R07.9 Chest pain, unspecified (principal); R94.31 Abnormal electrocardiogram [ECG] [EKG]
CPT/HCPCS: 93306

== ENCOUNTER 2025-01-18 10:56 | Outpatient (CLI) | payer BC, SELFPAY ==
--- NOTE | 2025-01-18 11:00 | CA_ITS ---
APPROVED REPORT Exam: Exercise Treadmill Technologist: Yessy Whipple Ht: 5 ft 9 in Wt: 179 lbs BSA: 1.97 m2 HR: 59 bpm BP: 137/61 mmHg Rhythm: NSR Stress Test Details Test: Exercise stress testing was performed using a Tuan protocol. HR Resting HR: 59 bpm Max Heart Rate (APMHR): 162 bpm Max HR Achieved: 147 bpm Target HR (85% APMHR): 138 bpm % of APMHR: 91 Recovery HR: 76 bpm HR response to stress: Normal HR response to stress BP Resting BP: 137.0/61.0 mmHg Max BP: 168.0/88.0 mmHg Recovery BP: 140.0/81.0 mmHg BP response to stress: Normal blood pressure response to stress. ECG Resting ECG: Sinus bradycardia Stress EC mm horizontal ST depression, T-wave changes Clinical Exercise duration: 6.07 min Exercise capacity: 7.1 METs Overall Exercise Capacity for Age: Fair Stress ECG Conclusion Symptoms: Dyspnea Arrhythmias/Ectopy: None ST-T Changes: [address] depression, T-wave changes Conclusion: Fair exercise capacity. Abnormal EKG response to exercise, suggestive of ischemia. Further evaluation is recommended. Electronically signed by : Margarita William MD 01/18/2025 15:27:36
== END 2025-01-18 23:59 | disposition home or self-care (01) ==
LOC: RT 10:58
PROVIDERS: PCP Family Medicine; Visit Provider Nurse Practitioner Family
DX: R94.31 Abnormal electrocardiogram [ECG] [EKG] (principal); R06.00 Dyspnea, unspecified; R07.9 Chest pain, unspecified
CPT/HCPCS: 93017; 93018

== ENCOUNTER 2025-01-24 07:20 | Outpatient (CLI) | payer BC, SELFPAY ==
--- OUTSIDE RECORDS SUMMARY | 2025-01-24 07:21 | XMS_ITS ---
Author Organization Unknown Medications Medication Instructions Effective Dates (start - stop) Status levocetirizine dihydrochlori de 5 MG Oral Tablet 3806-29-37K02:00:00.000+00: 00 - Completed doxycycline hyclate 100 MG O ral Capsule 0238-67-44I86:00:00.000+00: 00 - Completed doxycycline monohydrate 100 MG Oral Tablet 6613-18-82B94:00:00.000+00: 00 - Completed doxycycline monohydrate 100 MG Oral Tablet 3498-47-92Z73:00:00.000+00: 00 - Completed omeprazole 40 MG Delayed Rel ease Oral Capsule 5751-13-03B40:00:00.000+00: 00 - Completed omeprazole 40 MG Delayed Rel ease Oral Capsule 1939-53-53Y35:00:00.000+00: 00 - Completed omeprazole 40 MG Delayed Rel ease Oral Capsule 0639-27-13E02:00:00.000+00: 00 - Completed omeprazole 40 MG Delayed Rel ease Oral Capsule 1493-68-81K90:00:00.000+00: 00 - Completed omeprazole 40 MG Delayed Rel ease Oral Capsule 7385-39-53I77:00:00.000+00: 00 - Completed omeprazole 40 MG Delayed Rel ease Oral Capsule 5657-69-63C74:00:00.000+00: 00 - Completed omeprazole 40 MG Delayed Rel ease Oral Capsule 2250-63-04Q77:00:00.000+00: 00 - Completed omeprazole 20 MG Delayed Rel ease Oral Capsule 1702-55-42D78:00:00.000+00: 00 - Completed - 5094-07-69S67:00 :00.000+00: 00 - Completed omeprazole 40 MG Delayed Rel ease Oral Capsule 7721-88-99E58:00:00.000+00: 00 - Completed omeprazole 40 MG Delayed Rel ease Oral Capsule 8832-97-50Q01:00:00.000+00: 00 - Completed omeprazole 40 MG Delayed Rel ease Oral Capsule 3750-71-00O25:00:00.000+00: 00 - Completed omeprazole 40 MG Delayed Rel ease Oral Capsule 8445-27-56E34:00:00.000+00: 00 - Completed omeprazole 40 MG Delayed Rel ease Oral Capsule 4985-29-60O81:00:00.000+00: 00 - Completed trazodone hydrochloride 50 M G Oral Tablet 9744-89-18A38:00:00.000+00: 00 - Completed levocetirizine dihydrochlori de 5 MG Oral Tablet 0215-77-72Q34:00:00.000+00: 00 - Completed benzonatate 100 MG Oral Capsule 9254-49-96R31:00:00.000+00: 00 - Completed fluticasone propionate 0.05 MG/ACTUAT Metered Dose Nasal Lewis 4758-93-35H21:00:00 .000+00: 00 - Completed estradiol 0.1 MG/ML Vaginal Cream 4042-13-80N06:00:00.000+00: 00 - Completed topiramate 25 MG Oral Tablet 12-03-02:00:00.000+00: 00 - Completed fluticasone propionate 0.05 MG/ACTUAT Metered Dose Nasal Lewis 8517-10-66T98:00:00 .000+00: 00 - Completed sertraline 50 MG Oral Tablet 12-03-18:00:00.000+00: 00 - Completed sertraline 100 MG Oral Tablet 20-04-24:00:00.000+00: 00 - Completed {21 (methylprednisolone 4 MG Oral Tablet) } Pack 8525-25-83K94:00:00.000+00: 00 - Completed topiramate 25 MG Oral Tablet 12-01-30:00:00.000+00: 00 - Completed diethylpropion hydrochloride 25 MG Oral Tablet 8767-50-51D31:00:00.000+00: 00 - Completed {21 (methylprednisolone 4 MG Oral Tablet) } Pack 7159-09-29W51:00:00.000+00: 00 - Completed - 9112-95-73Y29:00 :00.000+00: 00 - Completed levocetirizine dihydrochlori de 5 MG Oral Tablet 3929-14-50R48:00:00.000+00: 00 - Completed dextromethorphan hydrobromid e 3 MG/ML / promethazine hydrochloride 1.25 MG/ML Oral Solution 7680-44-07N81:00:00.00: 00 - Completed Patient Care team information Name Category Status Period Participants - - Proposed period not known -
[2025-01-24 07:33] VITALS: BMI 36.1
[2025-01-24 07:45] VITALS: BP 121/73; PULSE 64; RESP 18; TEMP 36.3; O2SAT 98
[2025-01-24 08:20] LABS: Chloride 104 mmol/L (98-107); Potassium 3.9 mmoL/L (3.5-5.1); Sodium 139 mmol/L (136-145)
[2025-01-24 08:23] LABS: Anion Gap 7.9 mEq/L (5-15); Blood Urea Nitrogen 12 mg/dl (7-17); Carbon Dioxide 31 mmol/L (22.0-30.0); Creatinine Clearance Estimated 131 mL/min (50-200); Estimated Glomerular Filt Rate 103 ml/min (>60); GFR (African American) 124 ML/MIN (>60)
[2025-01-24 08:24] LABS: Glucose 95 mg/dl (74-100)
--- NOTE | 2025-01-24 08:30 | CT_ITS ---
APPROVED REPORT Supervisor Quilting: CLINICAL INDICATION Chest Pain TECHNIQUE Image Acquisition: A 128 slice MDCT scanner ([employer] View) was used for data acquisition. A noncontrast coronary calcium scan was performed. A CT attenuation threshold of 130 Hounsfield units (HU) was used for the detection of calcium in contiguous voxels of 1 sq mm in area to be counted as individual lesions. Bolus tracking in the ascending aorta with a threshold of 180 HU was performed. Immediately afterwards, ECG synchronized cardiac CT was then performed from the cardiac base to apex using retrospective gating with ECG tube current modulation. A total of 85 mL of Isovue 370 mg/mL contrast medium was administered at 5 mL/sec followed by a saline flush using a biphasic injection protocol. A tube voltage of 120 KVp was used. The patient received the following medications prior to the cardiac CT. 0.4 mg of sublingual nitroglycerin The average heart rate at the time of acquisition was 56 bpm and regular. Image Reconstruction Transaxial images were reconstructed at 0.67 mm slide thickness. Data was reviewed interactively on an advanced workstation capable of 2 and 3-dimensional displays in all conventional reconstruction formats, including multiplanar reformations, maximum intensity projections, curved multiplanar reformations, and volume rendered reconstructions. When applicable, selected routine images describing the relevant coronary anatomy and pathology were saved and sent to PACS. Complications None Technical Quality Overall image quality was good. Coronary artery opacification was adequate. Total DLP (Dose-Length Product) is 1858.6 mGy-cm. The reported value represents the total of one or more individual components during the CT acquisition of this date and at this time, and as such, the same value may appear in more than one CT report depending on the interpreting/reporting physicians. COMPARISON None FINDINGS CT Coronary Calcium Scoring LMA (Left Main Artery) = 0 LAD (Left Anterior Descending) = 0 LCX (Left Coronary Circumflex) = 0 RCA (Right Coronary Artery) = 0 Total Calcium Score = 0 using the AJ-130 method. The interpretation of the calcium heart score is based on the following continuum*: 0 = no calcified plaque detected (risk of coronary artery disease is very low ??? less than 5%) 1-10 = calcium detected in extremely minimal levels (risk of coronary diseases is still low ??? less than 10%) 11-100 = mild levels of plaque detected with certainty (mild or minimal narrowing of heart arteries is likely) 101-400 = definite,at least moderate levels of plaque detected (relatively high risk of a heart attack within 3-5 years) >401-999 = extensive levels of plaque detected (high risk of heart attack, high levels of vascular disease are present, high likelihood of at least one significant coronary narrowing) *The calcium heart score quantifies the burden of coronary calcification/plaque in the coronary arteries. The calcium heart score is not able to evaluate the presence or burden of non-calcified (i.e. soft) plaque. There is no identifiable calcification in the aortic valve, mitral annulus or mitral valve, pericardium, or myocardium. Coronary CT Angiography The coronary arterial system is right dominant. Quantitative Stenosis Grading: Left Main (LM): The left main originates normally from the left sinus of Valsalva. The LM bifurcates into the left anterior descending artery and left circumflex artery. The LM is patent with no evidence of atherosclerosis. Left Anterior Descending (LAD) and Diagonal Branches: The LAD gives off 3 diagonal branch(es). The LAD and its branches are patent with no evidence of atherosclerosis. There is no evidence of LAD-myocardial bridge. Left Circumflex (LCX) and Obtuse Marginals (OM): The LCX gives off 1 Obtuse Marginal (OM) branch(es). The LCX and its branches are patent with no evidence of atherosclerosis. Right Coronary Artery (RCA): The RCA originates normally from the right sinus of Valsalva. The RCA gives off a posterior descending artery (PDA) and posterolateral (PL) branches. The RCA and its branches are patent with no evidence of atherosclerosis. Non-Coronary Cardiac Findings: Analysis of the left ventricular (LV) structure and function was performed after 3-D reconstruction of the LV from axial images, with user-corrected automatic contouring for assessment of LV volumes and user-defined reconstruction from oblique planes for measurement of 3-D cardiac structure and function. -The left ventricle systolic function is normal. -There is no left atrial appendage filling defect. Two right pulmonary veins and two left pulmonary veins drain normally into the left atrium. -No pericardial thickening or calcification. -Central and branch pulmonary arteries in the [id number]-hpts are unremarkable. -Thoracic aorta within the visualized thoracic aortic-branches in the srlwy-yi-[id number] is unremarkable. Extracardiac Structures No significant extra-cardiac findings. Note, however, that this study is focused on the cardiac findings. IMPRESSION -Absence of coronary calcification with an Agatston score = 0 using the AJ-130 method. -No evidence of significant flow-limiting atherosclerosis of the coronary arteries. -No evidence of myocardial bridges or coronary anomalies. -CAD-RADS 0. Management recommendations per ACC/AHA guidelines*, as clinically appropriate. *Recommendations: CAD RADS 0: Reassurance. Consider non-atherosclerotic causes of chest pain. CAD RADS 1: Consider non-atherosclerotic causes of chest pain. Consider preventive therapy and risk factor modification. CAD RADS 2: Consider non-atherosclerotic causes of chest pain. Consider preventive therapy and risk factor modification, particularly for patients with nonobstructive plaque in multiple segments. CAD RADS 3: Consider further functional testing. Consider symptom-guided anti-ischemic and preventive pharmacotherapy as well as risk factor modification per published guideline statements. CAD RADS 4A: Consider further functional testing or invasive coronary angiography with revascularization per published guideline statements. Consider symptom-guided anti-ischemic and preventive pharmacotherapy as well as risk factor modification per published guideline statements. CAD RADS 4B: Invasive coronary angiography recommended with revascularization per published guideline statements. Consider symptom-guided anti-ischemic and preventive pharmacotherapy as well as risk factor modification per published guideline statements. CAD RADS 5: Consider invasive angiography and/or viability assessment with revascularization per published guideline statements. Consider symptom-guided anti-ischemic and preventive pharmacotherapy as well as risk factor modification per published guideline statements. CRITICAL RESULT None COMMUNICATION Per this written report The coronary and cardiac findings of this CCTA were reviewed, reported, and signed by Juan William MD (Train Controller) Conclusion Electronically signed by : Margarita William MD 01/25/2025 21:32:34
[2025-01-24 08:44] VITALS: BP 137/83; PULSE 61; RESP 16; O2SAT 97
[2025-01-24 08:47] VITALS: BP 118/71; PULSE 61; RESP 16; O2SAT 96
[2025-01-24 08:50] VITALS: BP 122/71; PULSE 63; RESP 16; O2SAT 96
[2025-01-24] MEDS: 0.9 % SODIUM CHLORIDE 50 ML VIAL IV (08:55)
[2025-01-24] MEDS: IOPAMIDOL-370 (76%);100ML BOTTLE 85 ML IV (08:55)
[2025-01-24 09:03] VITALS: BP 128/73; PULSE 71; RESP 16; O2SAT 96
== END 2025-01-24 09:03 | disposition home or self-care (01) ==
PROVIDERS: Internal Medicine; PCP Family Medicine; Visit Provider Nurse Practitioner Family
DX: R94.30 Abnormal result of cardiovascular function study, unspecified (principal); R94.31 Abnormal electrocardiogram [ECG] [EKG]; R07.9 Chest pain, unspecified
CPT/HCPCS: 75574; 80048; Q9967

== ENCOUNTER 2025-03-02 10:54 | Outpatient (CLI) | payer BC, SELFPAY ==
--- NOTE | 2025-03-02 10:30 | MM_ITS ---
PROCEDURE INFORMATION: Exam: MG Bilateral Screening 3D Mammography Exam date and time: 03/02/2025 10:54 AM Age: 59 years old Clinical indication: Screening exam. TECHNIQUE: Imaging protocol: Bilateral Screening tomosynthesis and 2D mammography including computer-aided detection (CAD) when performed. COMPARISON: 1. MG MM DIG SCREENING MAMM BI W/CAD 12/31/2023 7:51 AM 2. MG MM DIG SCREENING MAMM BI W/CAD 05/16/2022 8:37 AM FINDINGS: MAMMOGRAPHY: Breast composition: There are scattered areas of fibroglandular density. Mass: None. Architectural distortion: None. Calcifications: No suspicious calcifications. Asymmetric density: None. Skin thickening: None. Axillary adenopathy: None. IMPRESSION: No mammographic evidence of malignancy. Annual screening is recommended unless otherwise clinically indicated. ASSESSMENT: BI-RADS 1, Negative.
== END 2025-03-02 23:59 | disposition home or self-care (01) ==
LOC: RAD 10:54
PROVIDERS: PCP Family Medicine; Visit Provider Nurse Practitioner Obstetrics & Gynecology
DX: Z12.31 Encounter for screening mammogram for malignant neoplasm of breast (principal)
CPT/HCPCS: 77063; 77067

== ENCOUNTER 2025-03-04 12:06 | Outpatient (CLI) | payer BC, SELFPAY ==
[2025-03-04 13:30] LABS: Chol/HDL Ratio 2.6 (1-3.5); Cholesterol 216 mg/dl (140-200); HDL Cholesterol 82 mg/dl (40-60); Triglycerides 58 mg/dl (30-150); VLDL Cholesterol 12 mg/dL (0-40)
[2025-03-04 13:40] LABS: Direct LDL Cholesterol 94.09 mg/dL (100-129)
== END 2025-03-04 23:59 | disposition home or self-care (01) ==
LOC: LAB 12:06
PROVIDERS: PCP Internal Medicine; Visit Provider Internal Medicine
DX: E78.5 Hyperlipidemia, unspecified (principal)
CPT/HCPCS: 36415; 80061

== ENCOUNTER 2025-03-14 08:47 | Outpatient (CLI) | payer BC, SELFPAY ==
--- NOTE | 2025-03-14 09:00 | XR_ITS ---
FINAL REPORT TECHNIQUE: Bone densitometry calculations of the lumbar spine and left hip were obtained. CLINICAL HISTORY: High risk for osteoporosis COMPARISON: None FINDINGS: Using L1-4, the bone mineral density of the spine is 0.854 g/cm2, corresponding to T-score of -1.8. Using the left hip, the bone mineral density of the femoral neck is 0.566 g/cm2, corresponding to a T-score of -2.6. Using the right hip, the bone mineral density of the femoral neck is 0.765 g/cm?, corresponding to a T-score of -1.5. NOTE: T-score: Standard deviation compared with peak bone mass of young adult mean. *Following the recommendations of the International Society of Bone Densitometry, classification of hip BMD is based on the lower of two T-scores; total hip or femoral neck. IMPRESSION: Osteoporosis: Lowest T-score is at or below -2.5. This patient's T-score meets the World Health Organization criteria for osteoporosis. Reviewed, Interpreted and Dictated by Erickson Camacho MD Transcribed by Alisia Edmondson Authenticated and [facility]
== END 2025-03-14 23:59 | disposition home or self-care (01) ==
LOC: RAD 08:47
PROVIDERS: PCP Internal Medicine; Visit Provider Internal Medicine
DX: M81.0 Age-related osteoporosis without current pathological fracture (principal); F19.11 Other psychoactive substance abuse, in remission; Z82.69 Family history of other diseases of the musculoskeletal system and connective tissue
CPT/HCPCS: 77080

== ENCOUNTER 2025-07-19 15:55 | Outpatient (CLI) | payer BC, SELFPAY ==
--- NOTE | 2025-07-19 15:59 | XR_ITS ---
FINAL REPORT CLINICAL HISTORY: Fall, back pain COMPARISON: None FINDINGS: 3 views of the lumbosacral spine were obtained. No fracture is identified. There is moderate diffuse degenerative disc disease. Facet arthropathy is noted. There is minimal S-shaped scoliosis. No subluxation. IMPRESSION: Moderate degenerative change without fracture. Reviewed, Interpreted and Dictated by Daniel Gale MD Transcribed by Cleo Jimenez Authenticated and [facility]
--- NOTE | 2025-07-19 15:59 | XR_ITS ---
FINAL REPORT CLINICAL HISTORY: Fall, knee pain COMPARISON: 11/02/2015 FINDINGS: 2 views of the left knee were obtained. There is no acute fracture or dislocation. Mild degenerative changes at the medial compartment have increased compared to the prior exam. There is no soft tissue abnormality. IMPRESSION: No acute bony abnormality Reviewed, Interpreted and Dictated by Daniel Gale MD Transcribed by Cleo Jimenez Authenticated and [facility]
--- OUTSIDE RECORDS SUMMARY | 2025-07-19 15:59 | XMS_ITS | Clinical Summary ---
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 Active estradiol (ESTRACE) 0.1 MG/GM vaginal cream Insert 2 g into the vagina 1 (One) Time As Needed (vaginal dryness). 03/03/2021 Active levocetirizine (XYZAL) 5 MG tablet Take 1 tablet by mouth Daily. 10/02/2022 Active omeprazole (priLOSEC) 40 MG capsule Take 1 capsule by mouth 2 (Two) Times a Day. 180 capsule 08/11/2024 Active Cholecalciferol 1.25 MG (62174 UT) tablet Take 1 tablet by mouth 1 (One) Time Per Week. 12 tablet 08/17/2024 Active Pediatric Multivitamins-F l (MULT-VITAMIN/F LUORIDE PO) Apply 1 tablet to the mouth or throat Daily. 08/09/2024 Active Vonoprazan Fumarate (Voquezna) 20 MG tablet Take 0.5 tablets by mouth Daily. 30 tablet 3 10/12/2024 Active Active Problems Problem Noted Date Diagnosed Date Anxiety 04/16/2023 Assessment & Plan (10/16/2023 2:18 PM EST): Started taper of zoloft last week then learned her sister is having a pet scan for concerns of lung cancer. It is also the anniversary of her father's last year. After discussion, she has decided to resume the full dose for now and attempt taper when she doesn't have so many stressors. Assessment & Plan (04/16/2023 3:57 PM EDT): Newly identified, worse since cutting back on sweets. Mother 1 year ago and thinks that is triggering some of her irritability. Start sertraline today, titrate up as directed. Not interested in therapist at this time. Reassess next visit. Obstructive sleep apnea syndrome 01/16/2023 Assessment & Plan (01/16/2023 12:32 PM EDT): Mild per patient. Was intolerant to trial of CPAP. Weight reduction should help. Other constipation 02/21/2021 Overview (02/21/2021): Likely related to low-carb diet. Miralax helping. Assessment & Plan (02/21/2021 1:24 PM EDT): Increase fiber and water. Continue with regular exercise. Class 1 obesity due to exces s calories with serious comorbidity and body mass index (BMI) of 31.0 to 31.9 in adult 12/28/2020 Assessment & Plan (10/16/2023 2:22 PM EST): Patient's (Body mass index is 31.56 kg/m .) indicates that they are obese (BMI >30) with health conditions that include obstructive sleep apnea, hypertension, dyslipidemias, osteoarthritis, and anxiety . Weight is unchanged. BMI is above average; BMI management plan is completed. We discussed low calorie, low carb based diet program, portion control, increasing exercise, management of depression/anxiety/stress to control compensatory eating, pharmacologic options including diethylpropion, metformin, and an wiliam-based approach such as [employer] Pal or Lose It. I have instructed the patient to continue with pursuit of medical weight loss as a part of this program. Patient does meet criteria for use of anorectics at this time as BMI >30 and is not at treatment goal. The current plan for this month includes: - Continue to work on lifestyle behavioral changes - Continue to prioritize protein, fiber, and hydration. - Decrease sweets consumption. - Restart diethylpropion daily. - Start metformin for sweets cravings. This is likely related to insulin resistance from many factors including physical stress (hernia repair), emotional stress (sister's unknown diagnosis and anniversary of dad's ), and chronic sleep insufficiency. -Treatment goal 120-125lb. Assessment & Plan (07/23/2023 2:38 PM EDT): Patient's (Body mass index is 31.56 kg/m .) indicates that they are obese (BMI >30) with health conditions that include obstructive sleep apnea, hypertension, dyslipidemias, and osteoarthritis . Weight is improving with lifestyle modifications. BMI is above average; BMI management plan is completed. We discussed low calorie, low carb based diet program, portion control, and increasing exercise. I have instructed the patient to continue with pursuit of medical weight loss as a part of this program. Patient does meet criteria for use of anorectics at this time as BMI >30 and is not at treatment goal. The current plan for this month includes: - Continue to hold phendimetrazine while healing from HHR. OK to add back as appetite returns. - Prioritize liquid protein to prevent loss of LBM. - Treatment goal 120-125lb. Assessment & Plan (06/18/2023 2:51 PM EDT): Patient's (Body mass index is 34.23 kg/m .) indicates that they are obese (BMI >30) with health conditions that include obstructive sleep apnea and GERD . Weight is unchanged. BMI is above average; BMI management plan is completed. We discussed low calorie, low carb based diet program, portion control, increasing exercise, and pharmacologic options including diethylpropion . I have instructed the patient to continue with pursuit of medical weight loss as a part of this program. Patient does meet criteria for use of anorectics at this time as BMI >30 and is not at treatment goal. Continue nutritional focus and work towards new exercise FITT goal of: 2-2-4-2. The current plan for this month includes: - Continue to prioritize protein, fiber, and hydration. - Change diethylpropion to time release with afternoon PRN dose. - Taper off of topamax- decrease by 25mg per week. Tapering because patient is unsure if it is helping (did help to decrease sugar cravings initially). - Treatment goal 120-125lb. Assessment & Plan (05/15/2023 2:11 PM EDT): Patient's (Body mass index is 34.15 kg/m .) indicates that they are obese (BMI >30) with health conditions that include obstructive sleep apnea, hypertension, dyslipidemias, GERD, and osteoarthritis . Weight is improving with treatment. BMI is above average; BMI management plan is completed. We discussed low calorie, low carb based diet program, portion control, increasing exercise, pharmacologic options including diehtlypropion, topamax, and an wiliam-based approach such as [employer] Pal or Lose It. I have instructed the patient to continue with pursuit of medical weight loss as a part of this program. Patient does meet criteria for use of anorectics at this time as BMI >30 and is not at treatment goal. Continue nutritional focus and work towards new exercise FITT goal of: 2-2-4-2. The current plan for this month includes: -continue current exercise efforts, -weight loss goal 4-6lbs this month -continue nutrition focus, food journal recommended. -Increase topamax. Consider increasing diethylpropion to 75mg next visit if weight loss slower than expected or appetite dose not improve with increase in topamax. Consider metformin. Considering gastric bypass, advised to schedule with bariatric team to discuss this option. Treatment goal 120-125lb. Assessment & Plan (04/16/2023 3:56 PM EDT): Patient's (Body mass index is 33.65 kg/m .) indicates that they are obese (BMI >30) with health conditions that include hypertension, dyslipidemias, GERD, and osteoarthritis . Weight is improving with treatment. BMI is above average; BMI management plan is completed. We discussed low calorie, low carb based diet program, portion control, increasing exercise, joining a fitness center or start home based exercise program, pharmacologic options including diethylpropion, topamax, and an wiliam-based approach such as [employer] Pal or Lose It. I have instructed the patient to continue with pursuit of medical weight loss as a part of this program. Patient does meet criteria for use of anorectics at this time as BMI >30 and is not at treatment goal. Continue nutritional focus and work towards new exercise FITT goal of: 2-2-4-2. The current plan for this month includes: continue current exercise efforts, weight loss goal 4-6lbs this month, and continue to work on lifestyle behavioral changes. Increase focus on meal structure, avoid skipping meals, increase protein. Work on sleep hygiene. Treatment goal 120-125lb. Assessment & Plan (02/25/2023 10:52 AM EDT): Patient's (Body mass index is 35.74 kg/m .) indicates that they are morbidly/severely obese (BMI > 40 or > 35 with obesity - related health condition) with health conditions that include hypertension, dyslipidemias and GERD . Weight is improving with treatment. BMI is above average; BMI management plan is completed. We discussed low calorie, low carb based diet program, portion control, increasing exercise, management of depression/anxiety/stress to control compensatory eating, pharmacologic options including diethylpropion, topamax and an wiliam-based approach such as [employer] Pal or Lose It. I have instructed the patient to continue with pursuit of medical weight loss as a part of this program. Patient does meet criteria for use of anorectics at this time as BMI >30 and is not at treatment goal. Continue nutritional focus and work towards new exercise FITT goal of: 2-2-4-2 The current plan for this month includes: continue current exercise efforts, weight loss goal 4-6lbs this month, continue to work on lifestyle behavioral changes and continue nutrition focus with daily food journal. Only taking diethylpropion 2 times a day most days, the 3pm dose was difficult while school was still in session. Decrease dose to two a day and add topamax in the evening for continued sugar cravings. Hopefully it will also help with sleep. Goal 8-10lb. Assessment & Plan (01/21/2023 1:08 PM EDT): Patient's (Body mass index is 37.16 kg/m .) indicates that they are morbidly/severely obese (BMI > 40 or > 35 with obesity - related health condition) with health conditions that include hypertension, dyslipidemias, GERD and osteoarthritis . Weight is worsening. BMI is above average; BMI management plan is completed. We discussed low calorie, low carb based diet program, portion control, increasing exercise, management of depression/anxiety/stress to control compensatory eating, pharmacologic options including diethylpropion and an wiliam-based approach such as [employer] Pal or Lose It. I have instructed the patient to continue with pursuit of medical weight loss as a part of this program. Patient does meet criteria for use of anorectics at this time as BMI >30 and is not at treatment goal. Continue nutritional focus and work towards new exercise FITT goal of: 2-2-4-2. The current plan for this month includes: Bring back focus- restart low carb diet 900-1000 calories a day with adequate protein (80-100g/day). Complete additional labwork. Restart diethylpropion after reviewing UDS, it was helpful last time she took it with me. Chloe is on her insurance formulary, we discussed the pros/cons of trying that. Will consider for early plateau or insufficient appetite control. She already has worsening GERD and fatigue. Increase water- poor skin turgor and lower extremity edema. Addendum 01/21/23: After review of Ms. Ching Angel lab work, EKG, NAYELI, urine drug screen, PMH, and medical risk factors, it has been decided that it is medically appropriate to use an anorectic medication for assistance of weight loss. It is felt that the risks of staying at current body fat percentage and potential adverse co-morbid conditions outweighs the risk of medication use. Medication risks and benefits were again reviewed with patient. she has signed the medication agreement form & has decided to try the use of an anorectic medication for the assistance of weight loss. Assessment & Plan (04/04/2021 7:50 AM EDT): Patient's (Body mass index is 31.41 kg/m .) indicates that they are obese (BMI >30) with obesity-related health conditions that include hypertension, dyslipidemias and GERD . Obesity is improving with treatment. BMI is is above average; BMI management plan is completed. We discussed low calorie, low carb based diet program, increasing exercise, pharmacologic options including diethylpropion and an wiliam-based approach such as [employer] Pal or Lose It. I have instructed the patient to continue with pursuit of medical weight loss as a part of this program. Patient does meet criteria for use of anorectics at this time as BMI >27 and is not at treatment goal. Continue nutritional focus and work towards new exercise FITT goal of: 2-2-4-2. The current plan for this month includes: Keep up the good focus, continue current medications. Goal 6-8lb. Assessment & Plan (02/21/2021 12:57 PM EDT): Patient's (Body mass index is 32.11 kg/m .) indicates that they are obese (BMI >30) with obesity-related health conditions that include peripheral vascular disease . Obesity is improving with treatment. BMI is is above average; BMI management plan is completed. We discussed low calorie, low carb based diet program, portion control, increasing exercise and pharmacologic options including none. I have instructed the patient to continue with pursuit of medical weight loss as a part of this program. Patient does meet criteria for use of anorectics at this time as BMI >27. Continue nutritional focus and work towards new exercise FITT goal of: 2-2-4-2. The current plan for this month includes: DC qsymia- side effects. Increase fiber, increase water. Start diethylpropion two to three times daily. Assessment & Plan (01/24/2021 8:32 AM EDT): Patient's (Body mass index is 33.22 kg/m .) indicates that they are obese (BMI >30) with obesity-related health conditions that include GERD, peripheral vascular disease and back pain . Obesity is improving with treatment. BMI is is above average; BMI management plan is completed. We discussed low calorie, low carb based diet program, portion control, increasing exercise and pharmacologic options including qsymia. I have instructed the patient to continue with pursuit of medical weight loss as a part of this program. Patient does meet criteria for use of anorectics at this time as BMI >27. Continue nutritional focus and work towards new exercise FITT goal of: 2-2-4-2. The current plan for this month includes: continue current exercise efforts, weight loss goal 4-6lbs this month, continue to work on lifestyle behavioral changes and continue nutrition focus Assessment & Plan (01/10/2021 9:16 AM EDT): Start qsymia. Continue daily food jorunal. Continue to pack lunch and avoid fast food. Continue to walk on lunch break. Assessment & Plan (12/28/2020 3:51 PM EDT): Patient's (Body mass index is 33.73 kg/m .) indicates that they are obese (BMI >30) with obesity-related health conditions that include hypertension, dyslipidemias, GERD and osteoarthritis . Obesity is worsening. BMI is is above average; BMI management plan is completed. We discussed low calorie, low carb based diet program, portion control, increasing exercise and pharmacologic options including phentermine. Varicose veins of right lower extremity with erica n 12/27/2020 Assessment & Plan (01/24/2021 8:36 AM EDT): Wear compression stockings. Weight reduction should help. Assessment & Plan (01/10/2021 9:16 AM EDT): Wear compression socks Primary insomnia 12/27/2020 Morbid obesity with BMI of 45.0-49.9, adult 1009/2015 Chronic back pain Overview (12/27/2020): Did improve with weight loss but her breasts are very heavy, considering breast reduction in the future. 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 Assessment & Plan (01/24/2021 8:38 AM EDT): Start stretches- yoga. Assessment & Plan (12/27/2020 9:07 AM EDT): Incorporate yoga videos for stretching. H. pylori infection Hyperlipidemia Assessment & Plan (02/25/2023 10:52 AM EDT): Lipid abnormalities are worsening. Nutritional counseling was provided. Lipids will be reassessed in 1 year. Total cholesterol and LDL are elevated. No statin recommended because 10-year risk <5% (2.9%), advise to discuss more with PCP. Hypertension Overview (12/27/2020): Resolved with weight loss surgery, never on medication. Assessment & Plan (02/25/2023 10:52 AM EDT): Hypertension is unchanged. Continue current treatment regimen. Weight loss. Regular aerobic exercise. Continue current medications. Blood pressure will be reassessed at the next regular appointment. Assessment & Plan (01/16/2023 12:29 PM EDT): Hypertension is stable. Continue current treatment regimen. Weight loss. Regular aerobic exercise. Continue current medications. Blood pressure will be reassessed at the next regular appointment. Per patient her BP is normal at home and she has white coat syndrome . Was nervous to weigh in today. Assessment & Plan (01/10/2021 9:17 AM EDT): Monitor BP regularly, hold qsymia for reading 150/90. Weight reduction. Joint pain Overview (12/27/2020): Left knee pain, did improve with weight loss but has noticed it returning recently with weight regain. No medications. Arthritis Overview (10/18/2016): osteo in knees Assessment & Plan (07/23/2023 2:39 PM EDT): Continue regular physical activity, increase as tolerated. Continue with weight reduction. Resolved Problems Problem Noted Date Diagnosed Date Resolved Date Hiatal hernia 05/04/2021 07/10/2023 Overview (05/04/2021): Added automatically from request for surgery [id number] Gastroesophageal reflux disease 12/27/2020 07/10/2023 Assessment & Plan (06/18/2023 2:46 PM EDT): Worsening. Vomiting 3-4 nights a week due to reflux. Voice is hoarse. Send in her referral packet to see Dr. Barrett last week, waiting for a call to get scheduled. In the meantime, I will change her PPI to protonix, ok to use prevacid PRN. Assessment & Plan (05/15/2023 2:08 PM EDT): Worsening. Refer to bariatrics for further evaluation, patient was scheduled to have HHR but it was cancelled due to COVID-19 crisis. She is interested in gastric revision as well. Taking omeprazole 40mg once daily. Assessment & Plan (01/16/2023 12:30 PM EDT): Worsening. Continue omeprazole 40mg. Weight reduciton should help. Decided to not get hiatal hernia repair due to risk of complications. Hypothyroidism 12/04/2022 Overview (10/18/2016): prev on thyroid meds, felt bad taking them. recent blood work normal per pt Immunizations Immunization Administration Dates Next Due COVID-19 (VEENA) 12/06/2020 Flublok 18+yrs 08/02/2021 Fluzone >6mos 08/04/2017 Fluzone (or Fluarix & Flulav al for VFC) >6mos 07/22/2019 Hep A, 2 Dose 09/02/2018 Influenza, Unspecified 07/08/2020,2018,11/22/2018,2015 Shingrix 07/23/2019,07/22/2019 Tdap 07/22/2019 flucelvax quad pfs =>4 YRS 07/08/2020 Family History Medical History Relation Name Comments No Known Problems Father Cancer Maternal Grandmother Marisabel Abel Breast Hypertension Maternal Grandmother Marisabel Abel Asthma Mother Celeste Love COPD Mother Celeste Love Cancer Mother Celeste Love Breast Diabetes Mother Celeste Love Hypertension Mother Celeste Love Heart attack Paternal Grandfather Arthritis Sister Nevia Rodriguez Cancer Sister Nevia Rodriguez Melanoma Depression Sister Nevia Rodriguez Obesity Sister Nevia Rodriguez Lupus Son Relation Name Status Comments Father Maternal Grandmother Marisabel Abel (Age 80) Mother Celeste Love Paternal Grandfather (Age 60) Paternal Grandmother Sister Guido Rodriguez Son Social History Tobacco Use Types Packs/Day Years Used Date Smoking Tobacco: Former Cigarettes 0.3 10 0 09/29/2003 - 09/29/2013 Passive Smoke Exposure: Past Smokeless Tobacco: Never Tobacco Cessation:Counseling Given: Yes Alcohol Use Standard Drinks/Week Comments Not Currently 1 (1 standard drink = 0.6 oz pur e alcohol) PHQ-2 Answer Date Recorded Retired PHQ-9: Brief Depression Severity Measure Score 0 01/16/2023 Abuse Screen Answer Date Recorded Feels Unsafe at Home or Work/School no 07/09/2023 Feels Threatened by Someone no 06/29 Does Anyone Try to Keep You From Having Contact with Others or Doing Things Outside Your Home? no 07/09/2023 Physical Signs of Abuse Present no 07/09/2023 Housing Stability Answer Date Recorded Current Living Arrangements other (see comments) 07/10/2023 Potentially Unsafe Housing Conditions Not on muna e 07/10/2023 Disabilities Answer Date Recorded Difficulty Concentrating, Remembering or Making Decisions no 07/10/2023 Difficulty Managing Errands Independently no 07/10/2023 PHQ-2 Answer Date Recorded Retired PHQ-9: Brief Depression Severity Measure Score 0 01/16/2023 Comments No Sex and Gender Information Value Date Recorded Sex Assigned at Not on file Legal Sex Female 12:21 PM EDT Gender Identity Not on file Sexual Orientation Not on file Last Filed Vital Signs Vital Sign Reading Time Taken Comments Blood Pressure 124/80 10/12/2024 7:58 AM EST Pulse 75 10/12/2024 7:58 AM EST Temperature 37.1 C (98.7 F) 10/12/2024 7:58 AM EST Respiratory Rate 18 10/12/2024 7:58 AM EST Oxygen Saturation 96% 10/12/2024 7:58 AM EST Inhaled Oxygen Concentration - - Weight 78.9 kg (174 lb) 10/12/2024 7:58 AM EST Height 149.9 cm (4' 11 ) 10/12/2024 7:58 AM EST Body Mass Index 35.14 10/12/2024 7:58 AM EST Plan of Treatment Upcoming Encounters Date Type Department Care Team (Late st Contact Info) Description 08/16/2025 3:00 PM EST Office Visit [facility] [address] [place] [address] Kalpana Lauren PA [address] [place] [address] Health Maintenance Due Date Last Done Comments Annual Gynecologic Pelvic an d Breast Exam 1966 PAP SMEAR 1987 MAMMOGRAM 2006 COLOGUARD 2011 COLON CANCER SCREENING 5 YEA R SIGMOIDOSCOPY 2011 COLONOSCOPY 2011 [address] CANCER SCREENING 2011 CT COLONOGRAPHY 2011 FECAL OCCULT BLOOD TEST 2011 FIT Testing (1 year) 2011 Pneumococcal Vaccine 50+ (1 of 1 - PCV) 2016 ANNUAL PHYSICAL 12/30/2016 HEPATITIS C SCREENING 12/30/2016 ZOSTER VACCINE (2 of 2) 09/17/2019 07/23/2019, 07/22 LIPID PANEL 01/17/2024 01/16/2023 INFLUENZA VACCINE 04/29/2025 06/17/2024, , 08/02/2021, Additional history exists TDAP/TD VACCINES (2 - Td or Tdap) 07/22/2029 019 Medical Devices Implanted Type Area Repair Mechanic Device Identifier Shelf Expiration Date Model / Serial / Lot Stplln Peristrip Dry Veritas Ech60 6fire - [id number] Implanted:Qty : 1 on 07/19/2016 by Lucien Barrett MD at [facility] Implant N/A: Abdomen SYNOVIS 03/26/2019 [id number] / / [id number] Description:FIRST AND SECOND Stplln Peristrip Dry Veritas Ech60 6fire - [id number] Implanted:Qty : 1 on 07/19/2016 by Lucien Barrett MD at [facility] Implant N/A: Abdomen [employer]IS 03/26/2019 [id number] / / [id number] Description:THIRD AND FOURTH Stplln Peristrip Dry Veritas Ech60 6fire - [id number] Implanted:Qty : 1 on 07/19/2016 by Lucien Barrett MD at [facility] Implant N/A: Abdomen [employer]IS 03/26/2019 [id number] / / [id number] Description:FIFTH Sealant Fibrin Tisseel Fz 4ml - [id number] Implanted:Qty : 1 on 07/19/2016 by Lucien Barrett MD at [facility] Implant N/A: Abdomen [employer] 11/26/2017 [id number] / / [id number] Dev Cls Wnd Vloc/Pbt Malia Nonabs 1/2cir Sz2/0 27mm 23cm William - [id number] Implanted:Qty : 1 on 07/10/2023 by Lucien Barrett MD at [facility] Implant N/A: Abdomen [employer] 05/29/2025 [id number] / / [id number] Dev Cls Wnd Vloc/Pbt Malia Nonabs 1/2cir Sz2/0 27mm 23cm William - [id number] Implanted:Qty : 1 on 07/10/2023 by Lucien Barrett MD at [facility] Implant N/A: Abdomen [employer]EN 07/29/2025 [id number] / / [id number] Procedures Procedure Name Priority Date/Time Associated Diagnosis Comments LIPID PANEL Routine 01/16/2023 9:55 AM EDT Pure hypercholesterolemia Class 2 severe obesity due to excess calories with serious comorbidity and body mass index (BMI) of 37.0 to 37.9 in adult from Last 3 Months or Most Recently Relevant to Health Maintenance Results * (ABNORMAL) Lipid Panel (01/16/2023 9:55 AM EDT) Total Cholesterol 317(H) 100 - 199 mg/dL [facility] Triglycerides 120 0 - 149 mg/dL [facility] HDL Cholesterol 80 >39 mg/dL [facility] VLDL Cholesterol Carlos 21 5 - 40 mg/dL [facility] LDL Chol Calc (NIH) 216(H) 0 - 99 mg/dL [facility] Comment Comment [facility] Comment: Possible Familial Hypercholesterolemia. FH should be suspected when fasting LDL cholesterol is above 189 mg/dL or non-HDL cholesterol is above 219 mg/dL. A family history of high cholesterol and heart disease in 1st degree relatives should be collected. J Clin Lipidol 2011;5:133-140 Blood 01/16/2023 9:55 AM EDT 01/16/2023 Narrative [facility] (AMBULATORY) - 01/17/2023 7:08 PM EDT Performed at: 02 - [facility] [address] [place] [address] [id number] Aircraft Powerplant Repairer: Max Rg PhD, Phone: [phone] Patient Fasting: N Alayna Stoner APRN LAB BLOOD ORDERABLES Final Result [facility] (AMBULATORY) [address] [place] [address], [facility] [address] [place] [address], from Last 3 Months or Most Recently Relevant to Health Maintenance Insurance EMPLOYEE Advance Directives * Full Code (Latest Code Status on File) Date Activated Date Inactivated Comments 07/19/2016 7:03 PM 07/22/2016 2:25 PM Care Teams Hand Crocheter Relationship Specialty Start Date End Date Franco Polk MD [address] [facility] [address] [place] [address] PCP - General Family Medicine 07/10/16
--- OUTSIDE RECORDS SUMMARY | 2025-07-19 15:59 | XMS_ITS | Encounter Summary ---
[facility] Address [address] [place] [address] Care Team Providers Care Frame Catcher Name Role Phone Franco Polk MD Primary Care Provider [phone] Reason for Visit * Reason Comments Med Refill Encounter Details Date Type Department Care Team (Late st Contact Info) Description 04/21/2023 Refill [facility] WEIGHT MANAGEMENT [address] [place] [phone] Alayna Stoner, ASE MASTER MECHANIC [address] [place] [address] Anxiety Social History Tobacco Use Types Packs/Day Years Used Date Smoking Tobacco: Former Cigarettes 0.3 10 0 09/29/2003 - 09/29/2013 Passive Smoke Exposure: Past Smokeless Tobacco: Never Alcohol Use Standard Drinks/Week Comments Not Currently 1 (1 standard drink = 0.6 oz pur e alcohol) PHQ-2 Answer Date Recorded Retired PHQ-9: Brief Depression Severity Measure Score 0 01/16/2023 PHQ-2 Answer Date Recorded Retired PHQ-9: Brief Depression Severity Measure Score 0 01/16/2023 Comments No Sex and Gender Information Value Date Recorded Sex Assigned at Not on file Legal Sex Female 12:21 PM EDT Gender Identity Not on file Sexual Orientation Not on file documented as of this encounter Plan of Treatment Upcoming Encounters Date Type Department Care Team (Late st Contact Info) Description 08/16/2025 3:00 PM EST Office Visit [facility] BARIATRIC SURGERY [address] [place] [address] Kalpana Lauren PA [address] [place] [address] documented as of this encounter Visit Diagnoses Diagnosis Anxiety Anxiety state, unspecified documented in this encounter Care Teams Frame Catcher Relationship Specialty Start Date End Date Franco Polk MD [address] [facility] [address] [place] [address] PCP - General Family Medicine 07/10/16 documented as of this encounter
== END 2025-07-19 23:59 | disposition home or self-care (01) ==
LOC: RAD 15:56
PROVIDERS: PCP Internal Medicine; Visit Provider Internal Medicine
DX: M47.816 Spondylosis without myelopathy or radiculopathy, lumbar region (principal); M25.562 Pain in left knee; F51.04 Psychophysiologic insomnia; W19.XXXA Unspecified fall, initial encounter
CPT/HCPCS: 72100; 73560

== ENCOUNTER 2025-08-22 15:41 | Outpatient (CLI) | payer BC, SELFPAY ==
--- OUTSIDE RECORDS SUMMARY | 2025-08-11 11:30 | XMS_ITS | Encounter Summary ---
[facility] Address [address] [place] [address] Care Team Providers Care Dedicated Regional Driver Name Role Phone Dwight Waller DO Primary Care Provider + Encounter Details Date Type Department Care Team (Late st Contact Info) Description 08/11/2025 11:30 AM EST Telemedicine [facility] BARI[facility]RIC SURGERY [address] [place] [phone] Kalpana Lauren PA [address] [place] [address] Obesity, Class I, BMI 30-34.9 (Primary Dx); Gastroesophageal reflux disease, unspecified whether esophagitis present; Postgastrectomy malabsorption; Dyspepsia; Vitamin D deficiency; Abnormal blood level of iron; Fatigue, unspecified type Social History Tobacco Use Types Packs/Day Years [...] on file documented as of this encounter Last Filed Vital Signs Vital Sign Reading Time Taken Comments Blood Pressure - - Pulse - - Temperature - - Respiratory Rate - - Oxygen Saturation - - Inhaled Oxygen Concentration - - Weight 68.9 kg (152 lb) 08/11/2025 11:46 AM EST Height 149.9 cm (4' 11 ) 08/11/2025 11:46 AM EST Body Mass Index 30.7 08/11/2025 11:46 AM EST documented in this encounter Progress Notes * Kalpana Lauren PA - 08/11/2025 11:30 AM EST [facility] BARIATRIC SURGERY [address] [address] Patient Name: Ching Angel : 1965 Date of Visit: 08/11/2025 Chief Complaint: Annual Eval - 9 years postop History of Present Illness: Ching Angel is a 60 y.o. female s/p LSG/antoinette 07/19/16 GDW, s/plap HHR w/ falciform ligament reinforcement 07/10/23 GDW Feeling good. Has lost weight since last visit, says that is helping w/ her reflux, able to decrease PPI RX. Symptoms controlled w/ Omeprazole 20mg BID. As long as she is mindful of her food choices,and doesn't eat too late at night, she no longer has nighttime issues. Does not wish to proceed w/ conversion to RNY at this time. On Wegovy 1.7mg wkly (per PCP). Has had some increased bloating and diarrhea, but says o/w tolerating RX. Drinking 2 protein shakes/day w/ 2 small meals/day. Recently started PT for her back, exercise o/w limited. Bariatric labs 08/11/24 - low Vit D, o/w okay. Taking MVI + Calcium w/ D. Presurgery weight: 229 lbs. Current weight: 152 lbs. Total weight loss: 77 lbs. Past Medical History: Diagnosis Date Abnormal PFTs FEVI 85, FVC 76 Anxiety 04/16/2023 Chronic back pain Fatty liver GERD (gastroesophageal reflux disease) H. pylori infection IgG +, reviewed EGD [facility] 02/08 - h. pyl+ - treated, f/up testing negative 12/2016 History of depression Hyperlipidemia Morbid obesity PONV (postoperative nausea and vomiting) some nausea in PACU after endometrial ablation Pre-diabetes Sleep apnea Varicose veins of lower extremity Wears reading eyeglasses Past Surgical History: Procedure Laterality Date SECTION 1990 SECTION WITH TUBAL 1994 CHOLECYSTECTOMY N/A 07/19/2016 Procedure: CHOLECYSTECTOMY LAPAROSCOPIC; Surgeon: Lucien Barrett MD; Location: [facility] OR; Service: DILATATION AND CURETTAGE 1989 ENDOMETRIAL ABLATION with d & C ENDOSCOPY 2013 GASTRIC SLEEVE LAPAROSCOPIC N/A 07/19/2016 Procedure: GASTRIC SLEEVE LAPAROSCOPIC; Surgeon: Lucien Barrett MD; Location: [facility] OR; Service: HIATAL HERNIA REPAIR N/A 07/10/2023 Procedure: HIATAL HERNIA REPAIR LAPAROSCOPIC; Surgeon: Lucien Barrett MD; Location: [facility] OR; Service: General; Laterality: N/A; LASIK Allergies Allergen Reactions Keflex [Cephalexin] Anaphylaxis and Hives Almost dies when they gave it to Amoxicillin Hives Codeine Palpitations tachycardia Penicillins Hives Wellbutrin [Bupropion] Hives Current Outpatient Medications: calcium carb-cholecalciferol 600-10 MG-MCG tablet per tablet, Take 1 tablet by mouth Every 12 (Twelve) Hours., Disp: , Rfl: estradiol (ESTRACE) 0.1 MG/GM vaginal cream, Insert 2 g into the vagina 1 (One) Time As Needed (vaginal dryness)., Disp: , Rfl: levocetirizine (XYZAL) 5 MG tablet, Take 1 tablet by mouth Daily., Disp: , Rfl: Multi Vitamin tablet tablet, Daily., Disp: , Rfl: omeprazole (priLOSEC) 20 MG capsule, Take 1 capsule by mouth Every 12 (Twelve) Hours., Disp: , Rfl: Semaglutide-Weight Management 1.7 MG/0.75ML solution auto-injector, , Disp: , Rfl: Social History Socioeconomic History Marital status: Tobacco Use Smoking status: Former Current packs/day: 0.00 Average packs/day: 0.3 packs/day for 10.0 years (2.5 ttl pk-yrs) Types: Cigarettes Start date: 09/29/2003 Quit date: 09/29/2013 Years since quittin.8 Passive exposure: Past Smokeless tobacco: Never Vaping Use Vaping status: Never Used Substance and Sexual Activity Alcohol use: Not Currently Alcohol/week: 1.0 standard drink of alcohol Types: 1 Standard drinks or equivalent per week Drug use: No Sexual activity: Not Currently Partners: Male control/protection: Tubal ligation Comment: Physical Exam: Vital Signs: Weight: 68.9 kg (152 lb) Body mass index is 30.7 kg/m??. Temp: (not recorded) Pulse: (not recorded) BP: (not recorded) Physical Exam Constitutional: General: She is not in acute distress. Appearance: She is well-developed. Eyes: General: No scleral icterus. Pulmonary: Effort: Pulmonary effort is normal. Neurological: Mental Status: She is alert and oriented to person, place, and time. Assessment: 9 years s/p LSG/antoinette 07/19/16 GDW, s/p lap HHR w/ falciform ligament reinforcement 07/10/23 GDW ICD-10-CM ICD-9-CM 1. Obesity, Class I, BMI 30-34.9 E66.811 278.00 2. Gastroesophageal reflux disease, unspecified whether esophagitis present K21.9 530.81 3. Postgastrectomy malabsorption K91.2 579.3 Z90.3 4. Dyspepsia R10.13 536.8 5. Vitamin D deficiency E55.9 268.9 6. Abnormal blood level of iron R79.0 790.6 7. Fatigue, unspecified type R53.83 780.79 Plan: Continue w/ good food choices and healthy habits. Routine bariatric labs ordered. Additional input pending lab results. Call w/ issues/concerns. The patient was advised to follow up in 6 months, sooner if needed. EVELYN Alex Note: This was an audio and video enabled telemedicine encounter conducted via [employer]. Patient is located in [place]. Provider is at the office. Consent was obtained prior to the visit. documented in this encounter Plan of Treatment Upcoming Encounters Date Type Department Care Team (Late st Contact Info) Description 02/08/2026 4:00 PM EDT Office Visit [facility]ERY [address] [place] [phone] Kalpana Lauren PA [address] [place] [address] documented as of this encounter Results * Vitamin D,25-Hydroxy (08/12/2025 4:58 PM EST) Pathologist [facility] 25 Hydroxy, Vitamin D 44.5 30.0 - 100.0 ng/ml 08/12/2025 11:54 PM EST [facility] Blood Venipuncture / Unknown 08/12/2025 4:58 PM EST 08/12/2025 4:58 PM EST Narrative [facility] - 08/12/2025 11:54 PM EST Reference Range for Total Vitamin D 25(OH) Deficiency <20.0 ng/mL Insufficiency 21-29 ng/mL Sufficiency 30-100 ng/mL Toxicity >100 ng/ml us Kalpana RIVAS LAB BLOOD ORDERABLES Final Result [facility]
[address] [place] [address], * Vitamin B1, Whole Blood (08/12/2025 4:58 PM EST) Vitamin B1, Whole Blood 86.7 66.5 - 200.0 nmol/L 08/17/2025 5:10 PM EST [facility] Blood Venipuncture / Unknown 08/12/2025 4:58 PM EST 08/12/2025 4:58 PM EST Narrative [facility] - 08/17/2025 5:10 PM EST Test(s) 999745-Ovl. B1, Whole Blood was developed and its performance characteristics determined by [facility]. It has not been cleared or approved by the Food and Drug Administration. Performed at: - [address] [id number] Assistant At Surgery: Anamaria Ellis MD, Phone: [phone] Kalpana RIVAS LAB BLOOD ORDERABLES Final Result [facility] [address] [place] [address], * Prealbumin (08/12/2025 4:58 PM EST) Prealbumin 26.3 20.0 - 40.0 mg/dL 08/12/2025 11:41 PM EST [facility] Blood Venipuncture / Unknown 08/12/2025 4:58 PM EST 08/12/2025 4:58 PM EST Kalpana Lauren [place] LAB BLOOD ORDERABLES Final Result [facility]
[address] [place] [address], * Methylmalonic Acid, Serum (08/12/2025 4:58 PM EST) Methylmalonic Acid 133 0 - 378 nmol/L 08/22/2025 9:09 AM EST [facility] Blood Venipuncture / Unknown 08/12/2025 4:58 PM EST 08/12/2025 4:58 PM EST Narrative [facility] - 08/22/2025 9:09 AM EST Test(s) 307444-Dlzashxgnhpsr Acid, Serum was developed and its performance characteristics determined by [facility]. It has not been cleared or approved by the Food and Drug Administration. Performed at: [address] [id number] Assistant At Surgery: Anamaria Ellis MD, Phone: [phone] Ilalaure RIVAS LAB BLOOD ORDERABLES Final Result Performing Organization Address City/[facility]/ZIP Co de Phone Number [facility] [address] [place] [address], * Iron (08/12/2025 4:58 PM EST) Iron 66 37 - 145 mcg/dL 08/12/2025 11:57 PM EST [facility] Blood Venipuncture / Unknown 08/12/2025 4:58 PM EST 08/12/2025 4:58 PM EST Ila Conway [place] LAB BLOOD ORDERABLES Final Result Performing Organization Address [facility]/ZIP Co de Phone Number [facility]
[address] [place] [address], * Folate (08/12/2025 4:58 PM EST) Pathologist [facility] Folate 9.60 4.78 - 24.20 ng/mL 08/12/2025 11:54 PM EST [facility] Blood Venipuncture / Unknown 08/12/2025 4:58 PM EST 08/12/2025 4:58 PM EST Narrative [facility] - 08/12/2025 11:54 PM EST Results may be falsely increased if patient taking Biotin. Ila Aluren PA LAB BLOOD ORDERABLES Final Result Performing Organization Address City/[facility]/ZIP Co de Phone Number [facility]
[address] [place] [address], * Ferritin (08/12/2025 4:58 PM EST) Ferritin 89.30 13.00 - 150.00 ng/mL 08/13/2025 12:02 AM [facility] Blood Venipuncture / Unknown 08/12/2025 4:58 PM EST 08/12/2025 4:58 PM EST [facility] - 08/13/2025 12:02 AM EST Results may be falsely decreased if patient taking Biotin. Kalpana RIVAS LAB BLOOD ORDERABLES Final Result [facility]
[address] [place] [address], * Comprehensive Metabolic Panel (08/12/2025 4:58 PM EST) Pathologist [facility] Glucose 83 65 - 99 mg/dL 08/12/2025 11:57 PM [facility] BUN 13.0 6.0 - 20.0 mg/dL 08/12/2025 11:57 PM [facility] Creatinine 0.58 0.57 - 1.00 mg/dL 08/12/2025 11:57 PM [facility] Sodium 139 136 - 145 mmol/L 08/12/2025 11:57 PM [facility] Potassium 4.1 3.5 - 5.2 mmol/L 08/12/2025 11:57 PM [facility] Chloride 100 98 - 107 mmol/L 08/12/2025 11:57 PM [facility] CO2 27.0 22.0 - 29.0 mmol/L 08/12/2025 11:57 PM [facility] Calcium 9.6 8.6 - 10.5 mg/dL 08/12/2025 11:57 PM [facility] Total Protein 7.1 6.0 - 8.5 g/dL 08/12/2025 11:57 PM [facility] Albumin 4.3 3.5 - 5.2 g/dL 08/12/2025 11:57 PM [facility] ALT (SGPT) 11 1 - 33 U/L 08/12/2025 11:57 PM [facility] AST (SGOT) 19 1 - 32 U/L 08/12/2025 11:57 PM [facility] Alkaline Phosphatase 55 39 - 117 U/L 08/12/2025 11:57 PM [facility] Total Bilirubin 0.2 0.0 - 1.2 mg/dL 08/12/2025 11:57 PM [facility] Globulin 2.8 gm/dL 08/12/2025 11:57 PM [facility] A/G Ratio 1.5 g/dL 08/12/2025 11:57 PM [facility] BUN/Creatinine Ratio 22.4 7.0 - 25.0 08/12/2025 11:57 PM [facility] Anion Gap 12.0 5.0 - 15.0 mmol/L 08/12/2025 11:57 PM [facility] eGFR 104.4 >60.0 mL/min/1.7 3 08/12/2025 11:57 PM [facility] Blood Venipuncture / Unknown 08/12/2025 4:58 PM EST 08/12/2025 4:58 PM EST [facility] - 08/12/2025 11:57 PM EST GFR Categories in Chronic Kidney Disease (CKD) GFR Category GFR (mL/min/1.73) Interpretation G1 90 or greater Normal or high (1) G2 60-89 Mild decrease (1) G3a 45-59 Mild to moderate decrease G3b 30-44 Moderate to severe decrease G4 15-29 Severe decrease G5 14 or less Kidney failure (1)In the absence of evidence of kidney disease, neither GFR category G1 or G2 fulfill the criteria for CKD. eGFR calculation 2020 CKD-EPI creatinine equation, which does not include race as a factor us Kalpana RIVAS LAB BLOOD ORDERABLES Final Result [facility]
[address] [place] [address], documented in this encounter Visit Diagnoses Diagnosis Obesity, Class I, BMI 30-34.9- Primary Gastroesophageal reflux disease, unspecified whether esophagitis present Postgastrectomy malabsorption Dyspepsia Dyspepsia and other specified disorders of function of stomach Vitamin D deficiency Abnormal blood level of iron Other abnormal blood chemistry Fatigue, unspecified type documented in this encounter Care Teams Dedicated Regional Driver Relationship Specialty Start Date End Date Dwight Waller DO [address] [place] [id number] PCP - General 08/11/25 documented as of this encounter
--- OUTSIDE RECORDS SUMMARY | 2025-08-12 16:50 | XMS_ITS | Encounter Summary ---
[facility] [address] [place] [address] Care Team Providers Care Supervisor Rework Name Role Phone Dwight Waller DO Primary Care Provider + Encounter Details Date Type Department Care Team (Late st Contact Info) Description 08/12/2025 4:50 PM EST Lab [facility] [place] [address] [facility] [address] [place] [address] Obesity, Class I, BMI 30-34.9; Gastroesophageal reflux disease, unspecified whether esophagitis present; [...] Description 02/08/2026 4:00 PM EDT Office Visit [facility] BAR[facility] SUR[facility]ERY [address] [place] [id number] Kalpana Lauren PA [address] [place] [address] documented as of this encounter Procedures Procedure Name Priority Date/Time Associated Diagnosis Comments CBC WITH AUTO DIFFERENTIAL Routine 08/12/2025 4:58 PM EST Obesity, Class I, BMI 30-34.9 Gastroesophageal reflux disease, unspecified whether esophagitis present Postgastrectomy malabsorption Dyspepsia Vitamin D deficiency Abnormal blood level of iron Fatigue, unspecified type METHYLMALONIC ACID, SERUM Routine 08/12/2025 4:58 PM EST Obesity, Class I, BMI 30-34.9 Gastroesophageal reflux disease, unspecified whether esophagitis present Postgastrectomy malabsorption Dyspepsia Vitamin D deficiency Abnormal blood level of iron Fatigue, unspecified type VITAMIN B1, WHOLE BLOOD Routine 08/12/2025 4:58 PM EST Obesity, Class I, BMI 30-34.9 Gastroesophageal reflux disease, unspecified whether esophagitis present Postgastrectomy malabsorption Dyspepsia Vitamin D deficiency Abnormal blood level of iron Fatigue, unspecified type VITAMIN D,25-HYDROXY Routine 08/12/2025 4:58 PM EST Obesity, Class I, BMI 30-34.9 Gastroesophageal reflux disease, unspecified whether esophagitis present Postgastrectomy malabsorption Dyspepsia Vitamin D deficiency Abnormal blood level of iron Fatigue, unspecified type CBC AND DIFFERENTIAL Routine 08/12/2025 4:58 PM EST Obesity, Class I, BMI 30-34.9 Gastroesophageal reflux disease, unspecified whether esophagitis present Postgastrectomy malabsorption Dyspepsia Vitamin D deficiency Abnormal blood level of iron Fatigue, unspecified type PREALBUMIN Routine 08/12/2025 4:58 PM EST Obesity, Class I, BMI 30-34.9 Gastroesophageal reflux disease, unspecified whether esophagitis present Postgastrectomy malabsorption Dyspepsia Vitamin D deficiency Abnormal blood level of iron Fatigue, unspecified type IRON Routine 08/12/2025 4:58 PM EST Obesity, Class I, BMI 30-34.9 Gastroesophageal reflux disease, unspecified whether esophagitis present Postgastrectomy malabsorption Dyspepsia Vitamin D deficiency Abnormal blood level of iron Fatigue, unspecified type FOLATE Routine 08/12/2025 4:58 PM EST Obesity, Class I, BMI 30-34.9 Gastroesophageal reflux disease, unspecified whether esophagitis present Postgastrectomy malabsorption Dyspepsia Vitamin D deficiency Abnormal blood level of iron Fatigue, unspecified type FERRITIN Routine 08/12/2025 4:58 PM EST Obesity, Class I, BMI 30-34.9 Gastroesophageal reflux disease, unspecified whether esophagitis present Postgastrectomy malabsorption Dyspepsia Vitamin D deficiency Abnormal blood level of iron Fatigue, unspecified type COMPREHENSIVE METABOLIC PANEL Routine 08/12/2025 4:58 PM EST Obesity, Class I, BMI 30-34.9 Gastroesophageal reflux disease, unspecified whether esophagitis present Postgastrectomy malabsorption Dyspepsia Vitamin D deficiency Abnormal blood level of iron Fatigue, unspecified type documented in this encounter Results * CBC Auto Differential (08/12/2025 4:58 PM EST) WBC 6.92 3.40 - 10.80 10*3/mm3 08/12/2025 11:22 PM EST [facility] RBC 4.28 3.77 - 5.28 10*6/mm3 08/12/2025 11:22 PM [facility] Hemoglobin 13.8 12.0 - 15.9 g/dL 08/12/2025 11:22 PM [facility] Hematocrit 40.7 34.0 - 46.6 % 08/12/2025 11:22 PM [facility] MCV 95.1 79.0 - 97.0 fL 08/12/2025 11:22 PM [facility] MCH 32.2 26.6 - 33.0 pg 08/12/2025 11:22 PM [facility] MCHC 33.9 31.5 - 35.7 g/dL 08/12/2025 11:22 PM [facility] RDW 12.3 12.3 - 15.4 % 08/12/2025 11:22 PM [facility] RDW-SD 42.3 37.0 - 54.0 fl 08/12/2025 11:22 PM [facility] MPV 9.9 6.0 - 12.0 fL 08/12/2025 11:22 PM [facility] Platelets 357 140 - 450 10*3/mm3 08/12/2025 11:22 PM [facility] Neutrophil % 47.1 42.7 - 76.0 % 08/12/2025 11:22 PM [facility] Lymphocyte % 43.4 19.6 - 45.3 % 08/12/2025 11:22 PM [facility] Monocyte % 7.9 5.0 - 12.0 % 08/12/2025 11:22 PM [facility] Eosinophil % 0.7 0.3 - 6.2 % 08/12/2025 11:22 PM [facility] Basophil % 0.6 0.0 - 1.5 % 08/12/2025 11:22 PM [facility] Immature Grans % 0.3 0.0 - 0.5 % 08/12/2025 11:22 PM [facility] Neutrophils, Absolute 3.26 1.70 - 7.00 10*3/mm3 08/12/2025 11:22 PM EST [facility] Lymphocytes, Absolute 3.00 0.70 - 3.10 10*3/mm3 08/12/2025 11:22 PM EST [facility] Monocytes, Absolute 0.55 0.10 - 0.90 10*3/mm3 08/12/2025 11:22 PM EST [facility] Eosinophils, Absolute 0.05 0.00 - 0.40 10*3/mm3 08/12/2025 11:22 PM EST [facility] Basophils, Absolute 0.04 0.00 - 0.20 10*3/mm3 08/12/2025 11:22 PM EST [facility] Immature Grans, Absolute 0.02 0.00 - 0.05 10*3/mm3 08/12/2025 11:22 PM EST [facility] nRBC 0.0 0.0 - 0.2 /100 WBC 08/12/2025 11:22 PM EST [facility] Blood Venipuncture / Unknown 08/12/2025 4:58 PM EST 08/12/2025 4:58 PM EST Kalpana RIVAS LAB BLOOD ORDERABLES Final Result [facility]
[address] [place] [address], * Vitamin D,25-Hydroxy (08/12/2025 4:58 PM EST) [facility] 25 Hydroxy, Vitamin D 44.5 30.0 - 100.0 ng/ml 08/12/2025 11:54 PM EST [facility] Blood Venipuncture / Unknown 08/12/2025 4:58 PM EST 08/12/2025 4:58 PM EST Narrative [facility] - 08/12/2025 11:54 PM EST Reference Range for Total Vitamin D 25(OH) Deficiency <20.0 ng/mL Insufficiency 21-29 ng/mL Sufficiency 30-100 ng/mL Toxicity >100 ng/ml Kalpana RIVAS LAB BLOOD ORDERABLES Final Result [facility]
[address] [place] [address], [place] [phone] * Vitamin B1, Whole Blood (08/12/2025 4:58 PM EST) Vitamin B1, Whole Blood 86.7 66.5 - 200.0 nmol/L 08/17/2025 5:10 PM EST [facility] Blood Venipuncture / Unknown 08/12/2025 4:58 PM EST 08/12/2025 4:58 PM EST Narrative [facility] - 08/17/2025 5:10 PM EST Test(s) [id number]. B1, Whole Blood was developed and its performance characteristics determined by [facility] [employer]. It has not been cleared or approved by the Food and Drug Administration. Performed at: 01 - [address] [id number] Draw String Knotter: Anamaria Ellis MD, Phone: [phone] Kalpana RIVAS LAB BLOOD ORDERABLES Final Result Performing Organization Address [facility] Co de Phone Number [facility] [address] [place] [address], [place] [phone] * Prealbumin (08/12/2025 4:58 PM EST) [facility] Prealbumin 26.3 20.0 - 40.0 mg/dL 08/12/2025 11:41 PM EST [facility] Blood Venipuncture / Unknown 08/12/2025 4:58 PM EST 08/12/2025 4:58 PM EST Kalpana RIVAS LAB BLOOD ORDERABLES Final Result [facility]
[address] [place] [address], * Methylmalonic Acid, Serum (08/12/2025 4:58 PM EST) [facility] Methylmalonic Acid 133 0 - 378 nmol/L 08/22/2025 9:09 AM EST [facility] Blood Venipuncture / Unknown 08/12/2025 4:58 PM EST 08/12/2025 4:58 PM EST Narrative [facility] - 08/22/2025 9:09 AM EST Test(s) [id number]-Jptrackpggwhy Acid, Serum was developed and its performance characteristics determined by [facility]. It has not been cleared or approved by the Food and Drug Administration. Performed at: 01 - [address] [id number] Draw String Knotter: Anamaria Ellis MD, Phone: [phone] Kalpana RIVAS LAB BLOOD ORDERABLES Final Result [facility] [address] [place] [address], [place] [phone] * Iron (08/12/2025 4:58 PM EST) [facility] Iron 66 37 - 145 mcg/dL 08/12/2025 11:57 PM EST [facility] Blood Venipuncture / Unknown 08/12/2025 4:58 PM EST 08/12/2025 4:58 PM EST Kalpana RIVAS LAB BLOOD ORDERABLES Final Result [facility]
[address] [place] [address], [place] [phone] * Folate (08/12/2025 4:58 PM EST) [facility] Folate 9.60 4.78 - 24.20 ng/mL 08/12/2025 11:54 PM EST [facility] Blood Venipuncture / Unknown 08/12/2025 4:58 PM EST 08/12/2025 4:58 PM EST [facility] - 08/12/2025 11:54 PM EST Results may be falsely increased if patient taking Biotin. [facility] Final Result Performing Organization Address City/[facility]/ZIP Co de Phone Number [facility]
[address] [place] [address], * Ferritin (08/12/2025 4:58 PM EST) Pathologist [facility] Ferritin 89.30 13.00 - 150.00 ng/mL 08/13/2025 12:02 AM [facility] Blood Venipuncture / Unknown 08/12/2025 4:58 PM EST 08/12/2025 4:58 PM EST [facility] - 08/13/2025 12:02 AM EST Results may be falsely decreased if patient taking Biotin. [facility] BLOOD [facility] Final Result Performing Organization Address [facility] Co de Phone Number [facility]
[address] [place] [address], * Comprehensive Metabolic Panel (08/12/2025 4:58 PM EST) Pathologist [facility] Glucose 83 65 - 99 mg/dL 08/12/2025 11:57 PM [facility] BUN 13.0 6.0 - 20.0 mg/dL 08/12/2025 11:57 PM [facility] Creatinine 0.58 0.57 - 1.00 mg/dL 08/12/2025 11:57 PM [facility] Sodium 139 136 - 145 mmol/L 08/12/2025 11:57 PM [facility] Potassium 4.1 3.5 - 5.2 mmol/L 08/12/2025 11:57 PM [facility] Chloride 100 98 - 107 mmol/L 08/12/2025 11:57 PM [facility] CO2 27.0 22.0 - 29.0 mmol/L 08/12/2025 11:57 PM [facility] Calcium 9.6 8.6 - 10.5 mg/dL 08/12/2025 11:57 PM [facility] Total Protein 7.1 6.0 - 8.5 g/dL 08/12/2025 11:57 PM [facility] Albumin 4.3 3.5 - 5.2 g/dL 08/12/2025 11:57 PM [facility] ALT (SGPT) 11 1 - 33 U/L 08/12/2025 11:57 PM [facility] AST (SGOT) 19 1 - 32 U/L 08/12/2025 11:57 PM [facility] Alkaline Phosphatase 55 39 - 117 U/L 08/12/2025 11:57 PM [facility] Total Bilirubin 0.2 0.0 - 1.2 mg/dL 08/12/2025 11:57 PM [facility] Globulin 2.8 gm/dL 08/12/2025 11:57 PM [facility] A/G Ratio 1.5 g/dL 08/12/2025 11:57 PM [facility] BUN/Creatinine Ratio 22.4 7.0 - 25.0 08/12/2025 11:57 PM [facility] Anion Gap 12.0 5.0 - 15.0 mmol/L 08/12/2025 11:57 PM [facility] eGFR 104.4 >60.0 mL/min/1.7 3 08/12/2025 11:57 PM [facility] Blood Venipuncture / Unknown 08/12/2025 4:58 PM EST 08/12/2025 4:58 PM [facility] - 08/12/2025 11:57 PM [facility] GFR Categories in Chronic Kidney Disease (CKD) [...] Kalpana RIVAS LAB BLOOD ORDERABLES Final Result [facility]
[address] [place] [address], documented in this encounter Visit Diagnoses Diagnosis Obesity, Class I, BMI 30-34.9 Gastroesophageal reflux disease, unspecified whether esophagitis present Postgastrectomy malabsorption Dyspepsia Dyspepsia and other specified disorders of function of stomach Vitamin D deficiency Abnormal blood level of iron Other abnormal blood chemistry Fatigue, unspecified type documented in this encounter Care Teams Supervisor Rework Relationship Specialty Start Date End Date Dwight Waller DO [address] [place] [address] PCP - General 08/11/25 documented as of this encounter
--- NOTE | 2025-08-22 15:44 | XR_ITS ---
FINAL REPORT CLINICAL HISTORY: Back/shoulder pain FINDINGS: Three views of the left shoulder were obtained. There is no prior exam for comparison. There is no fracture or dislocation. The joint space is preserved. Soft tissues are unremarkable. IMPRESSION: No acute osseous abnormality of the left shoulder. Reviewed, Interpreted and Dictated by Sandra Mccoy MD Transcribed by Cleo Jimenez Authenticated and [facility]
--- NOTE | 2025-08-22 15:44 | XR_ITS ---
FINAL REPORT CLINICAL HISTORY: Back/shoulder pain FINDINGS: Three views of the right shoulder were obtained. There is no prior exam for comparison. There is no fracture or dislocation. Mild acromioclavicular joint degenerative disease is noted. Soft tissues are unremarkable. IMPRESSION: No acute osseous abnormality of the right shoulder. Mild degenerative changes. Reviewed, Interpreted and Dictated by Sandra Mccoy MD Transcribed by Cleo Jimenez Authenticated and [facility]
--- NOTE | 2025-08-22 15:44 | XR_ITS ---
FINAL REPORT CLINICAL HISTORY: Back/shoulder pain FINDINGS: AP and lateral views of the thoracic spine were obtained. There is no prior exam for comparison. There is no acute fracture or acute malalignment. Vertebral body height is preserved. There is mild multilevel degenerative disc disease. No acute paraspinal abnormality. IMPRESSION: No acute osseous abnormality of the thoracic spine. Degenerative disc disease. Reviewed, Interpreted and Dictated by Sandra Mccoy MD Transcribed by Cleo Jimenez Authenticated and . [facility]
--- OUTSIDE RECORDS SUMMARY | 2025-08-22 15:51 | XMS_ITS | Encounter Summary ---
[facility] [address] [place] [address] Care Team Providers Care Security Team Lead Name Role Phone SridharLuisaestela Lerma DO Primary Care Provider + Reason for Visit * Reason Comments Med Refill Encounter Details Date Type Department Care Team (Late st Contact Info) Description 04/21/2023 Refill [facility] [address] [place] [address] Alayna Stoner, MEDICAL RESEARCH ASSOCIATE [address] [place] [address] Anxiety Social History Tobacco Use [...] Description 02/08/2026 4:00 PM EDT Office Visit [facility] BARIATRIC SURGERY [address] [place] [address] Kalpana Lauren PA [address] [place] [address] documented as of this encounter Visit Diagnoses Diagnosis Anxiety Anxiety state, unspecified documented in this encounter Care Teams Security Team Lead Relationship Specialty Start Date End Date Dwight Waller DO [address] [place] [address] PCP - General 08/11/25 documented as of this encounter
--- OUTSIDE RECORDS SUMMARY | 2025-08-22 15:51 | XMS_ITS | Clinical Summary ---
Author Organization [facility] Address [address] [place] [address] Care Team Providers Care Meat Team Lead Name Role Phone Dwight Waller DO Primary Care Provider + Allergies Active Allergy Reactions Criticality Noted Date Comments Amoxicillin Hives Low 12/09/2022 Codeine Palpitations Low 07/12/2016 tachycardia Cephalexin Anaphylaxis,Hives High 07/12/2016 Almost dies when they gave it to Penicillins Hives Low 07/12/2016 Bupropion Hives Low 07/12/2016 Medications estradiol (ESTRACE) 0.1 MG/GM vaginal cream Insert 2 g into the vagina 1 (One) Time As Needed (vaginal dryness). 1 Active levocetirizine (XYZAL) 5 MG tablet Take 1 tablet by mouth Daily. 3 Active omeprazole (priLOSEC) 20 MG capsule Take 1 capsule by mouth Every 12 (Twelve) Hours. 5 Active Semaglutide-We ight Management 1.7 MG/0.75ML solution auto-injector Active Multi Vitamin tablet tablet Daily. Active calcium carb-cholecalc iferol 600-10 MG-MCG tablet per tablet Take 1 tablet by mouth Every 12 (Twelve) Hours. 5 Active Pride-3 Fatty Acids (fish oil) 1000 MG capsule capsule Take 1 capsule by mouth 2 (Two) Times a Day With Meals. 08/11/20 25 Discontinued omeprazole (priLOSEC) 40 MG capsule Take 1 capsule by mouth 2 (Two) Times a Day. 180 capsule 4 08/11/20 25 Discontinued Cholecalcifero l 1.25 MG (88850 UT) tablet Take 1 tablet by mouth 1 (One) Time Per Week. 12 tablet 4 08/11/20 25 Discontinued Pediatric Multivitamins- Fl (MULT-VITAMIN/ FLUORIDE PO) Apply 1 tablet to the mouth or throat Daily. 4 08/11/20 25 Discontinued Vonoprazan Fumarate (Voquezna) 20 MG tablet Take 0.5 tablets by mouth Daily. 30 tablet 3 5 08/11/20 25 Discontinued Active Problems Problem Noted Date Diagnosed Date [...] metformin, and an wiliam-based approach such as Splashscore Pal or Lose It. I have instructed [...] topamax, and an wiliam-based approach such as Splashscore Pal or Lose It. I have instructed [...] topamax, and an wiliam-based approach such as Splashscore Pal or Lose It. I have instructed [...] topamax and an wiliam-based approach such as Splashscore Pal or Lose It. I have instructed [...] diethylpropion and an wiliam-based approach such as Splashscore Pal or Lose It. I have instructed [...] diethylpropion and an wiliam-based approach such as Splashscore Pal or Lose It. I have instructed [...] Morbid obesity with BMI of 45.0-49.9, adult 10/09/2015 Chronic back pain Overview (12/27/2020): Did improve with weight loss but her breasts are very heavy, considering breast reduction in the future. 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 Assessment & Plan (01/24/2021 8:38 AM EDT): [...] 9:17 AM EDT): Monitor BP regularly, hold qsvLineia for reading 150/90. Weight reduction. Joint pain [...] (05/04/2021): Added automatically from request for surgery [id number] Gastroesophageal reflux disease 12/27/2020 07/10/2023 Assessment & [...] them. recent blood work normal per pt Encounters Date Type Department Care Team Description 08/19/2025 Results Follow-Up [facility] [address] [facility] [address] [place] [address] Kalpana Lauren PA 08/12/2025 4:50 PM EST Lab [facility] [address] [facility] [address] [place] [address] Obesity, Class I, BMI 30-34.9; Gastroesophageal reflux disease, unspecified whether esophagitis present; Postgastrectomy malabsorption; Dyspepsia; Vitamin D deficiency; Abnormal blood level of iron; Fatigue, unspecified type 08/12/2025 Travel 08/11/2025 11:30 AM [facility] BARIATRIC SURGERY [address] [place] [id number] Kalpana Lauren PA Obesity, Class I, BMI 30-34.9 (Primary Dx); Gastroesophageal reflux disease, unspecified whether esophagitis present; Postgastrectomy malabsorption; Dyspepsia; Vitamin D deficiency; Abnormal blood level of iron; Fatigue, unspecified type from Last 3 Months Immunizations Immunization Administration Dates Next Due COVID-19 (HackerHAND) 12/06/2020 Flublok 18+yrs 08/02/2021 Fluzone >6mos 08/04/2017 [...] Asthma Mother Celeste Love COPD Mother Celeste oLve Cancer Mother Celeste Love Breast Diabetes Mother Celeste Love Hypertension Mother Celeste Love Heart attack Paternal Grandfather Arthritis Sister Nevia Rodriguez Cancer Sister Nevia Rodriguez Melanoma Depression Sister Nevia Rodriguez Obesity Sister Nevia Rodriguez Lupus Son Relation Name Status Comments Father Maternal Grandmother Marisabel Abel (Age 80) Mother Celeste Love Paternal Grandfather (Age 60) Paternal Grandmother Sister Nevia Rodriguez Son Social History Tobacco Use Types [...] EST Inhaled Oxygen Concentration - - Weight 68.9 kg (152 lb) 08/11/2025 11:46 AM EST Height 149.9 cm (4' 11 ) 08/11/2025 11:46 AM EST Body Mass Index 30.7 08/11/2025 11:46 AM EST Plan of Treatment Upcoming Encounters Date Type Department Care Team (Late st Contact Info) Description 02/08/2026 4:00 PM EDT Office Visit [facility] SURGERY [address] [place] [phone] Kalpana Lauren PA [address] [place] [address] Health Maintenance Due Date Last Done Comments [...] 09/17/2019 07/23/2019, 07/22 LIPID PANEL 01/17/2024 01/16/2023 TDAP/TD VACCINES (2 - Td or Tdap) 07/22/2029 019 INFLUENZA VACCINE Completed 07/19/2025, , 07/21/2023, Additional history exists Medical Devices Implanted Type Area Band Saw Filer Device Identifier Shelf Expiration Date Model / Serial / Lot Stplln Peristrip Dry Veritas Ech60 6fire - [id number] Implanted:Qty : 1 on 07/19/2016 by Lucien Barrett MD at [facility] Implant N/A: Abdomen SYNOVIS 03/26/2019 [id number] / / [id number] Description:FIRST AND SECOND Stplln Peristrip Dry Veritas Ech60 6fire - [id number] Implanted:Qty : 1 on 07/19/2016 by Lucien Barrett MD at [facility] Implant N/A: Abdomen SYNOVIS 03/26/2019 [id number] / / [id number] Description:THIRD AND FOURTH Stplln Peristrip Dry Veritas Ech60 6fire - [id number] Implanted:Qty : 1 on 07/19/2016 by Lucien Barrett MD at [facility] Implant N/A: Abdomen SYNOVIS 03/26/2019 [id number] V / / [id number] Description:FIFTH Sealant Fibrin Tisseel Fz 4ml - [id number] Implanted:Qty : 1 on 07/19/2016 by Lucien Barrett MD at [facility] Implant N/A: Abdomen [facility] 11/26/2017 [id number] / / [id number] Dev Cls Wnd Vloc/Pbt Malia Nonabs 1/2cir Sz2/0 27mm 23cm William - [id number] Implanted:Qty : 1 on 07/10/2023 by Lucien Barrett MD at [facility] Implant N/A: Abdomen COVIDIEN 05/29/2025 [id number] / / [id number] Dev Cls Wnd Vloc/Pbt Malia Nonabs 1/2cir Sz2/0 27mm 23cm William - [id number] Implanted:Qty : 1 on 07/10/2023 by Lucien Barrett MD at [facility] Implant N/A: Abdomen COVIDIEN 07/29/2025 [id number] / / [id number] Procedures Procedure Name Priority Date/Time Associated Diagnosis Comments CBC AND DIFFERENTIAL Routine 08/12/2025 4:58 PM EST Obesity, Class I, BMI 30-34.9 Gastroesophageal reflux disease, unspecified whether esophagitis present Postgastrectomy malabsorption Dyspepsia Vitamin D deficiency Abnormal blood level of iron Fatigue, unspecified type CBC WITH AUTO DIFFERENTIAL Routine 08/12/2025 4:58 [...] blood level of iron Fatigue, unspecified type LIPID PANEL Routine 01/16/2023 9:55 AM EDT Pure hypercholesterolemi a Class 2 severe obesity due to excess calories with serious comorbidity and body mass index (BMI) of 37.0 to 37.9 in adult from Last 3 Months or Most Recently Relevant to Health Maintenance Results * CBC Auto Differential (08/12/2025 4:58 PM EST) [facility] WBC 6.92 3.40 - 10.80 10*3/mm3 08/12/2025 11:22 PM [facility] RBC 4.28 3.77 - 5.28 10*6/mm3 08/12/2025 11:22 PM [facility] Hemoglobin 13.8 12.0 - 15.9 g/dL 08/12/2025 11:22 PM [facility] Hematocrit 40.7 34.0 - 46.6 % 08/12/2025 11:22 PM [facility] MCV 95.1 79.0 - 97.0 fL 08/12/2025 11:22 PM [facility] MCH 32.2 26.6 - 33.0 pg 08/12/2025 11:22 PM [facility] MCHC 33.9 31.5 - 35.7 g/dL 08/12/2025 11:22 PM [facility] RDW 12.3 12.3 - 15.4 % 08/12/2025 11:22 PM [facility] RDW-SD 42.3 37.0 - 54.0 fl 08/12/2025 11:22 PM [facility] MPV 9.9 6.0 - 12.0 fL 08/12/2025 11:22 PM [facility] Platelets 357 140 - 450 10*3/mm3 08/12/2025 11:22 PM [facility] Neutrophil % 47.1 42.7 - 76.0 % 08/12/2025 11:22 PM [facility] Lymphocyte % 43.4 19.6 - 45.3 % 08/12/2025 11:22 PM [facility] Monocyte % 7.9 5.0 - 12.0 % 08/12/2025 11:22 PM [facility] Eosinophil % 0.7 0.3 - 6.2 % 08/12/2025 11:22 PM [facility] Basophil % 0.6 0.0 - 1.5 % 08/12/2025 11:22 PM [facility] Immature Grans % 0.3 0.0 - 0.5 % 08/12/2025 11:22 PM EST [facility] Neutrophils, Absolute 3.26 1.70 - 7.00 10*3/mm3 08/12/2025 11:22 PM EST [facility] Lymphocytes, Absolute 3.00 0.70 - 3.10 10*3/mm3 08/12/2025 11:22 PM EST [facility] Monocytes, Absolute 0.55 0.10 - 0.90 10*3/mm3 08/12/2025 11:22 PM EST [facility] Eosinophils, Absolute 0.05 0.00 - 0.40 10*3/mm3 08/12/2025 11:22 PM EST [facility] Basophils, Absolute 0.04 0.00 - 0.20 10*3/mm3 08/12/2025 11:22 PM [facility] Immature Grans, Absolute 0.02 0.00 - 0.05 10*3/mm3 08/12/2025 11:22 PM [facility] nRBC 0.0 0.0 - 0.2 /100 WBC 08/12/2025 11:22 PM EST [facility] Blood Venipuncture / Unknown 08/12/2025 4:58 PM EST 08/12/2025 4:58 PM EST Kalpana Lauren OR LAB BLOOD ORDERABLES Final Result [facility]
[address] [place] [address], * Methylmalonic Acid, Serum (08/12/2025 4:58 PM EST) Methylmalonic Acid 133 0 - 378 nmol/L 08/22/2025 9:09 AM EST [facility] Blood Venipuncture / Unknown 08/12/2025 4:58 PM EST 08/12/2025 4:58 PM EST Narrative [facility] - 08/22/2025 9:09 AM EST Test(s) 063364-Ojbxmdihduepr Acid, Serum was developed and its performance characteristics determined by [employer]. It has not been cleared or approved by the Food and Drug Administration. Performed at: [address] [id number] Ride Assembly Supervisor: Anamaria Ellis MD, Phone: [phone] Kalpana RIVAS LAB BLOOD ORDERABLES Final Result Performing Organization Address [facility]/ZIP Co de Phone Number [facility] [address] [place] [address], * Vitamin B1, Whole Blood (08/12/2025 4:58 PM EST) Pathologist [facility] Vitamin B1, Whole Blood 86.7 66.5 - 200.0 nmol/L 08/17/2025 5:10 PM EST [facility] Blood Venipuncture / Unknown 08/12/2025 4:58 PM EST 08/12/2025 4:58 PM EST Narrative [facility] - 08/17/2025 5:10 PM EST Test(s) 861346-Blb. B1, Whole Blood was developed and its performance characteristics determined by [employer]. It has not been cleared or approved by the Food and Drug Administration. Performed at: [address] [id number] Ride Assembly Supervisor: Anamaria Ellis MD, Phone: [phone] Kalpana RIVAS LAB BLOOD ORDERABLES Final Result Performing Organization Address City/[facility]/ZIP Co de Phone Number [facility] [address] [place] [address], [place] [phone] * Vitamin D,25-Hydroxy (08/12/2025 4:58 PM EST) Pathologist [facility] 25 Hydroxy, Vitamin D 44.5 30.0 - 100.0 ng/ml 08/12/2025 11:54 PM EST [facility] Blood Venipuncture / Unknown 08/12/2025 4:58 PM EST 08/12/2025 4:58 PM EST Narrative [facility] - 08/12/2025 11:54 PM EST Reference Range for Total Vitamin D 25(OH) Deficiency <20.0 ng/mL Insufficiency 21-29 ng/mL Sufficiency 30-100 ng/mL Toxicity >100 ng/ml Kalpana Anaya Leonidas RIVAS LAB BLOOD ORDERABLES Final Result Performing Organization Address City/[facility]/ZIP Co de Phone Number [facility]
[address] [place] [address], * Prealbumin (08/12/2025 4:58 PM EST) Prealbumin 26.3 20.0 - 40.0 mg/dL 08/12/2025 11:41 PM EST [facility] Blood Venipuncture / Unknown 08/12/2025 4:58 PM EST 08/12/2025 4:58 PM EST Kalpana Anaya Leonidas RIVAS LAB BLOOD ORDERABLES Final Result Performing Organization Address [facility] Co va Phone Number [facility]
[address] [place] [address], [place] [phone] * Iron (08/12/2025 4:58 PM EST) Iron 66 37 - 145 mcg/dL 08/12/2025 11:57 PM EST [facility] Blood Venipuncture / Unknown 08/12/2025 4:58 PM EST 08/12/2025 4:58 PM EST Kalpana Anaya Leonidas RIVAS LAB BLOOD ORDERABLES Final Result Performing Organization Address City/[facility] Co de Phone Number [facility]
[address] [place] [address], [place] [phone] * Folate (08/12/2025 4:58 PM EST) [facility] Folate 9.60 4.78 - 24.20 ng/mL 08/12/2025 11:54 PM EST [facility] Blood Venipuncture / Unknown 08/12/2025 4:58 PM EST 08/12/2025 4:58 PM EST [facility] - 08/12/2025 11:54 PM EST Results may be falsely increased if patient taking Biotin. [facility] LAB BLOOD ORDERABLES Final Result Performing Organization Address City/[facility]/ZIP Co de Phone Number [facility]
[address] [place] [address], * Ferritin (08/12/2025 4:58 PM EST) [facility] Ferritin 89.30 13.00 - 150.00 ng/mL 08/13/2025 12:02 AM EST [facility] Blood Venipuncture / Unknown 08/12/2025 4:58 PM EST 08/12/2025 4:58 PM EST [facility] - 08/13/2025 12:02 AM EST Results may be falsely decreased if patient taking Biotin. [facility] LAB BLOOD ORDERABLES Final Result Performing Organization Address City/[facility]/ZIP Co de Phone Number [facility]
[address] [place] [address], * Comprehensive Metabolic Panel (08/12/2025 4:58 PM EST) [facility] Glucose 83 65 - 99 mg/dL 08/12/2025 11:57 PM [facility] BUN 13.0 6.0 - 20.0 mg/dL 08/12/2025 11:57 PM EST [facility] Creatinine 0.58 0.57 - 1.00 mg/dL 08/12/2025 11:57 PM EST [facility] Sodium 139 136 - 145 mmol/L 08/12/2025 11:57 PM [facility] Potassium 4.1 3.5 - 5.2 mmol/L 08/12/2025 11:57 PM [facility] Chloride 100 98 - 107 mmol/L 08/12/2025 11:57 PM [facility] CO2 27.0 22.0 - 29.0 mmol/L 08/12/2025 11:57 PM [facility] Calcium 9.6 8.6 - 10.5 mg/dL 08/12/2025 11:57 PM [facility] Total Protein 7.1 6.0 - 8.5 g/dL 08/12/2025 11:57 PM [facility] Albumin 4.3 3.5 - 5.2 g/dL 08/12/2025 11:57 PM [facility] ALT (SGPT) 11 1 - 33 U/L 08/12/2025 11:57 PM [facility] AST (SGOT) 19 1 - 32 U/L 08/12/2025 11:57 PM [facility] Alkaline Phosphatase 55 39 - 117 U/L 08/12/2025 11:57 PM [facility] Total Bilirubin 0.2 0.0 - 1.2 mg/dL 08/12/2025 11:57 PM [facility] Globulin 2.8 gm/dL 08/12/2025 11:57 PM [facility] A/G Ratio 1.5 g/dL 08/12/2025 11:57 PM [facility] BUN/Creatinine Ratio 22.4 7.0 - 25.0 08/12/2025 11:57 PM [facility] Anion Gap 12.0 5.0 - 15.0 mmol/L 08/12/2025 11:57 PM [facility] eGFR 104.4 >60.0 mL/min/1.7 3 08/12/2025 11:57 PM [facility] Blood Venipuncture / Unknown 08/12/2025 4:58 PM EST 08/12/2025 4:58 PM EST Narrative [facility] - 08/12/2025 11:57 PM EST GFR [...] does not include race as a factor Kalpana RIVAS LAB BLOOD ORDERABLES Final Result [facility]
[address] [place] [address], * (ABNORMAL) Lipid Panel (01/16/2023 9:55 AM [...] 01/16/2023 9:55 AM EDT 01/16/2023 Narrative [facility] ([facility]) - 01/17/2023 7:08 PM EDT Performed at: [facility] [id number] Ride Assembly Supervisor: Max Rg PhD, Phone: [phone] Patient Fasting: N us Alayna Matias Herbie CHIEF WRITER LAB BLOOD ORDERABLES Final Result [facility] ([facility]) [address] [place] [address], [place] [phone] [facility] [address] [place] [address], [place] [phone] from Last 3 Months or Most Recently Relevant to Health Maintenance Insurance [employer] Advance Directives * Full Code (Latest Code Status on File) Date Activated Date Inactivated Comments 07/19/2016 7:03 PM 07/22/2016 2:25 PM Care Teams Meat Team Lead Relationship Specialty Start Date End Date Dwight Waller DO [address] [place] [id number] PCP - General 08/11/25
--- OUTSIDE RECORDS SUMMARY | 2025-08-22 15:51 | XMS_ITS | Encounter Summary ---
[facility] Address [address] [place] [address] Care Team Providers Care Retail Director Name Role Phone Dwight Waller Florentin Primary Care Provider + Encounter Details Date Type Department Care Team (Latest Contact Info) Description 08/12/2025 Travel Social History Tobacco Use Types Packs/Day Years [...] Description 02/08/2026 4:00 PM EDT Office Visit [facility] BARIAT[facility]IC SURGERY [address] [place] [address] Kalpana Lauren PA [address] [place] [address] documented as of this encounter Visit Diagnoses Not on filedocumented in this encounter Care Teams Retail Director Relationship Specialty Start Date End Date Dwight Waller DO [address] [place] [address] PCP - General 08/11/25 documented as of this encounter
--- OUTSIDE RECORDS SUMMARY | 2025-08-22 15:51 | XMS_ITS | Encounter Summary ---
Author Organization [facility] Address [address] [place] [address] Care Team Providers Care Technician Preventative Medicine Name Role Phone Sridhar Dwight Lerma DO Primary Care Provider + Encounter Details Date Type Department Care Team (Late st Contact Info) Description 08/19/2025 Results Follow-Up [facility] [place] [address] [facility] [address] [place] [address] Kalpana Lauren PA [address] [place], [place] [address] Social History Tobacco Use Types Packs/Day Years [...] Description 02/08/2026 4:00 PM EDT Office Visit [facility] SUR[facility]ERY [address] [place] [address] Kalpana Lauren PA [address] [place] [address] documented as of this encounter Visit Diagnoses Not on filedocumented in this encounter Care Teams Technician Preventative Medicine Relationship Specialty Start Date End Date Dwight Waller DO [address] [place] [address] PCP - General 08/11/25 documented as of this encounter
== END 2025-08-22 23:59 | disposition home or self-care (01) ==
LOC: RAD 15:42
PROVIDERS: PCP Internal Medicine; Visit Provider Internal Medicine
DX: M51.34 Other intervertebral disc degeneration, thoracic region (principal); M19.011 Primary osteoarthritis, right shoulder; M25.512 Pain in left shoulder
CPT/HCPCS: 72070; 73030

== ENCOUNTER 2025-08-22 16:00 | Outpatient (RCR) | payer BC, SELFPAY ==
--- NOTE | 2025-08-09 17:11 | HMH.PTOPEV ---
PT Evaluation Rehab PT Outpatient Evaluation Start: 08/09/25 15:09 Freq: Status: Active Protocol: Document 08/09/25 15:11 JUAN (Rec: 08/09/25 17:10 JUAN [id number]) E-signed By Amanda Dang, PT Outpatient Therapy Subjective History Subjective History Pt is a 60 y/o female referred to PT for back pain following a fall. Pt states she fell off a ladder while camping a few months ago hitting her back on a bunk bed. Pt reports she's had chronic pre-existing mid back before the fall which slightly worsened after. Pt reports pain has gradually worsened since. Pt denies neck pain, low back pain or rib pain. Pt had a lumbar spine xray on 07/19/25 with impression of Moderate degenerative change without fracture. Pt denies having imaging of her thoracic spine. Pt reports current symptoms of mid back pain aggravated by bending forward , prolonged standing, reaching overhead and walking on inclines. Pt reports pain improves with rest. Pt denies night pain or difficulty sleeping due to pain. R handed Work: [employer] Medical History: Osteoporosis, Abnormal cardiovascular stress test, Abnormal electrocardiogram [ECG] [EKG], Deviated septum, GERD (gastroesophageal reflux disease) , HTN (hypertension), Nasal drainage, Memory issues New diagnosis of No cancer in past 12 months? Chief Complaint Pain Symptom Type Ache,Dull Symptoms Relieved By Rest/Positioning Symptoms Aggravated Standing,Physical Activity,Lifting By Current Functional Reaching,Standing,Walking Limitations Symptom Description Intermittent Level of pain today 7 (0-10) Pain scale - at its 0 best (0-10) Pain scale - at its 8 worst (0-10) Cervical Eval Palpation Cervical Muscles R CT Junction,L CT Junction,R Thoracic Paraspinals,L Thoracic Paraspinals Cervical/Thoracic Tenderness Palpation Findings Flexibility Deficits Pectoralis Major (R) Moderate Tightness,(L) Moderate Tightness Muscle Length Pectoralis Minor (R) Moderate Tightness,(L) Moderate Tightness Muscle Length AROM Cervical Spine 30 Extension Active Range of Motion ( degrees) Cervical Spine 50 Flexion Active Range of Motion (degrees) Cervical Spine Right 45 Lateral Flexion Active Range of Motion (degrees) Cervical Spine Left 45 Lateral Flexion Active Range of Motion (degrees) Shoulder/Elbow Eval Shoulder Objective Measurements Posture Shoulder Posture (R) Rounded,(L) Forward,(R) Forward Sitting Position Shoulder Posture (R) Rounded,(L) Forward,(R) Forward Standing Position Shoulder ROM Bilateral full ROM shoulder bilateral exam standard Shoulder MMT Lower Trapezius 3+ Fair+ Strength Grade Middle Trapezius 4- Good- Strength Grade Rhomboids Strength 4- Good- Grade Upper Trapezius/ 4 Good Levator Scapulae Shoulder Abduction 4- Good- Strength Grade Shoulder Extension 4- Good- Strength Grade Shoulder Flexion 4 Good Strength Grade Shoulder Horizontal 4 Good Abduction Strength Grade Elbow Objective Measurements Lumbopelvic Eval Posture Thoracic Spine Increased Kyphosis Posture Standing Position Palapation tenderness bilateral thoracic spinal Yes: Upper-mid thoracic spine tenderness paraspinal Yes: L>R thoracic PS mm tenderness Lumbar/Sacral Tenderness Palpation Findings Lumbar/Sacral 2/4 TTP Palpation Overall Comment Accessory Movement T-spine Vertebrae Central P/A [place] Accessory Movements that Elicit Symptoms T10 bilateral T11 bilateral T12 bilateral Range of Motion Lumbar Spine Active 100 Flexion Range of Motion (degrees) Lumbar Spine Active 25 Extension Range of Motion (degrees) Left Lumbar Spine 15 Lateral Flexion Active Range of Motion (degrees) Right Lumbar Spine 5 Lateral Flexion Active Range of Motion (degrees) Oswestry Index Section 1 Pain Intensity The pain comes and goes and is moderate Section 2 Personal Care ( change my way of washing or dressing in order to avoid Washing,[place]) pain Section 3 Lifting I can only lift very light weights at most Section 4 Walking I have some pain when walking but it does not increase with distance Section 5 Sitting I can sit in any chair for as long as I like Section 6 Standing I have some pain on standing, but it does not increase with time Section 7 Sleeping I get pain in bed, but it does not prevent me from sleeping well Section 8 Social Life My social life is normal and gives me no extra pain Section 9 Traveling I get some pain when traveling, but none of my usual forms of travel m Section 10 Changing Degreee of My pain is gradually getting worse Pain Score and Risk Level Oswestry Score 15 Oswestry Risk Level Moderate Disability Outpatient Therapy Assessment Impairments Problems/ Palpation Tenderness,Impaired Range of Motion,Impaired Impairmments Strength,Impaired Walking,Impaired Standing,Impaired Household Care,Impaired Work Activities,Impaired Desk/ Computer Activities,Subjective C/O Pain,Impaired Self Care/Self Management Prognosis Rehab Potential Good Clinical Impression Consistent with Yes Diagnosis Consistent with thoracic pain Additional details: ICD-10 code: M54.6 PT Patient Goals PT Patient Goals PT Short Term 3 weeks: Patient Goals 1. Verbalize compliance with HEP to assist with progress. 2. Improve pain at worst to 6/10 to improve overall QOL /function. PT Retirement Patient 6 weeks: Goals 1. Improve TTP of upper-mid thoracic spine and paraspinals to assist with pain and mobility. 2. Improve cervical extension AROM to at least 40 to assist with mobility. 3. Improve scapular strength to 4-4+/5 grossly to assist with posture and function. 4. Improve BENITO score to 10 or less to improve overall QOL/function 5. Improve pain at worst to 4/10 to improve overall QOL /function. 6. Report ability to work a full shift with pain 4/10 or less. Outpatient Therapy Plan of Care Treatment Plan May Include Therapeutic Exercise Yes Including Home Exercise Program Manual Therapy Yes Techniques Neuromuscular Re- Yes education Therapeutic Yes Activities to Return to Previous Functional/Work Level ADL/Self Care Yes Education Frequency Times per week 2 Duration Number of Weeks 4-6 Addendums This patient is a No candidate for social or vocational rehab ? Patient/Guardian Yes verbally acknowledges understanding of treatment program and consents to further treatment? Patient/Guardian Yes verbally acknowledges understanding of diagnosis, prognosis and goals for treatment? Eval Complexity PT Charges [id number] - Low Complexity PHYSICIAN CERTIFICATION: I certify the specified therapy services for [place] are required, authorized, and reviewed every 30 days.
== END 2025-08-22 23:59 | disposition home or self-care (01) ==
LOC: PT 16:00
PROVIDERS: PCP Internal Medicine; Visit Provider Internal Medicine
DX: M54.6 Pain in thoracic spine (principal); G89.29 Other chronic pain; M47.816 Spondylosis without myelopathy or radiculopathy, lumbar region
CPT/HCPCS: 97110; 97161

== ENCOUNTER 2025-09-01 15:01 | Outpatient (RCR) | payer BC, SELFPAY | END 2025-09-01 23:59 | disposition home or self-care (01) | LOC: PT 15:01 | PROVIDERS: PCP Internal Medicine; Visit Provider Internal Medicine | DX: M54.9 Dorsalgia, unspecified (principal); T14.8XXA Other injury of unspecified body region, initial encounter; W19.XXXA Unspecified fall, initial encounter | CPT/HCPCS: 97110 ==